=== PATIENT | female | born 1985 | race American Indian/Alaskan Native ===

== ENCOUNTER 2016-10-24 01:32 | Emergency (ER) | payer SELFPAY ==
[2016-10-24 01:32] VITALS: BMI 40.6
--- NOTE | 2016-10-24 01:46 | C.PDOC ---
History Of Present Illness Patient presents to the emergency room looking for a place to stay. Patient is well known to the ED and has had multiple prior visits for the same reason. Patient denies any physical complaints. Time Seen by Provider: 10/24/16 01:45 History Per: Patient History/Exam Limitations: no limitations Onset/Duration Of Symptoms: Hrs Current Symptoms Are (Timing): Still Present Recent travel outside of the [place]: No Past Medical History Reviewed: Historical Data, Nursing Documentation, Vital Signs Vital Signs: Last Vital Signs Temp 98.8 F 10/24/16 01:40 Pulse 87 10/24/16 01:40 Resp 18 10/24/16 01:40 BP 159/82 H 10/24/16 01:40 Pulse Ox 100 10/24/16 01:40 - Medical History PMH: Anxiety, Asthma, Back Problems, Bipolar Disorder, Depression, HTN, Schizophrenia, Sleep Apnea Denies: Diabetes, Hepatitis, HIV, Chronic Kidney Disease, Seizures, Sexually Transmitted Disease Surgical History: Cholecystectomy, Hernia Repair (Umbilical), (x4) - [facility] Procedures GROUP PSYCHOTHERAPY (03/15/16) INDIVID PSYCHOTHERAP NEC (07/19/14) INDIVIDUAL PSYCHOTHERAPY, SUPPORTIVE (03/15/16) INJECT/INFUSE ELECTROLYT (03/24/15) INJECT/INFUSE NEC (03/24/15) MEDICATION MANAGEMENT (08/04/16) NEBULIZER THERAPY (01/28/15) OTHER GROUP THERAPY (07/19/14) PSYCHIA INTERV/EVAL NEC (03/20/15) PSYCHIAT DRUG THERAP NEC (08/18/14) Family History: States: Unknown Family Hx - Social History Hx Tobacco Use: Yes Hx Alcohol Use: Yes Hx Substance Use: Yes - Immunization History Hx Tetanus Toxoid Vaccination: No Hx Influenza Vaccination: No Hx Pneumococcal Vaccination: No Review Of Systems Constitutional: Negative for: Fever Gastrointestinal: Negative for: Nausea, Vomiting, Diarrhea Physical Exam - Physical Exam Appears: No Acute Distress Skin: Warm, Dry Extremity: Normal ROM, No Tenderness Neurological/Psych: Oriented x3 ED Course And Treatment O2 Sat by Pulse Oximetry: 100 Pulse Ox Interpretation: Normal Reevaluation Time: 05:25 Reassessment Condition: Improved Disposition Counseled Patient/Family Regarding: Studies Performed, Diagnosis, Need For Followup - Disposition Referrals: [facility] at [facility] [Outside] Disposition: HOME/ ROUTINE Disposition Time: 01:46 Condition: FAIR Instructions: Anxiety (ED) - Clinical Impression Clinical Impression: Medical assessment - Scribe Statement The provider has reviewed the documentation as recorded by the Scribe Quoc Mccracken All medical record entries made by the Vargasibe were at my direction and personally dictated by me. I have reviewed the chart and agree that the record accurately reflects my personal performance of the history, physical exam, medical decision making, and the department course for this patient. I have also personally directed, reviewed, and agree with the discharge instructions and disposition.
[2016-10-24 06:10] VITALS: BP 145/72; PULSE 81; RESP 20; TEMP 97.8; O2SAT 99
== END 2016-10-24 06:10 | disposition home or self-care (01) ==
LOC: C.ER 01:32
DX: Z00.00 Encounter for general adult medical examination without abnormal findings (principal)

== ENCOUNTER 2016-12-04 04:50 | Emergency (ER) | payer MEDICAID, OTHER ==
[2016-12-04 04:50] VITALS: BMI 47.0
[2016-12-04 05:12] VITALS: BP 119/57; PULSE 79; TEMP 98.6; O2SAT 98
--- NOTE | 2016-12-04 05:16 | C.PDOC ---
History Of Present Illness 31 Y/O FEMALE STATES SHE HAS BEEN UNABLE TO WALK FOR 2 MONTHS. DENIES INJURY OR TRAUMA. PT AMBULATORY TO ED. NO OTHER PHYSICAL COMPLAINTS. History Per: Patient History/Exam Limitations: no limitations Onset/Duration Of Symptoms: Days Recent travel outside of the [place]: No Past Medical History Reviewed: Historical Data, Nursing Documentation, Vital Signs Vital Signs: Last Vital Signs Temp 98.6 F 12/04/16 05:05 Pulse 79 12/04/16 05:05 Resp 18 12/04/16 05:05 BP 119/57 L 12/04/16 05:05 Pulse Ox 98 12/04/16 05:16 - Medical History PMH: Anxiety, Asthma, Back Problems, Bipolar Disorder, Depression, HTN, Schizophrenia, Sleep Apnea Surgical History: Cholecystectomy, Hernia Repair (Umbilical), (x4) - [facility] Procedures GROUP PSYCHOTHERAPY (03/15/16) INDIVID PSYCHOTHERAP NEC (07/19/14) INDIVIDUAL PSYCHOTHERAPY, SUPPORTIVE (03/15/16) INJECT/INFUSE ELECTROLYT (03/24/15) INJECT/INFUSE NEC (03/24/15) MEDICATION MANAGEMENT (08/04/16) NEBULIZER THERAPY (01/28/15) OTHER GROUP THERAPY (07/19/14) PSYCHIA INTERV/EVAL NEC (03/20/15) PSYCHIAT DRUG THERAP NEC (08/18/14) Family History: States: Unknown Family Hx - Social History Hx Tobacco Use: Yes Hx Alcohol Use: Yes Hx Substance Use: Yes - Immunization History Hx Tetanus Toxoid Vaccination: No Hx Influenza Vaccination: Yes Hx Pneumococcal Vaccination: Yes Review Of Systems Except As Marked, All Systems Reviewed And Found Negative. Constitutional: Negative for: Fever Cardiovascular: Negative for: Chest Pain Respiratory: Negative for: Shortness of Breath, Wheezing Gastrointestinal: Negative for: Nausea, Vomiting, Abdominal Pain Skin: Negative for: Rash Neurological: Negative for: Headache Physical Exam - Physical Exam Appears: Non-toxic, No Acute Distress Skin: Warm, Dry Head: Atraumatic, Normacephalic Chest: Symmetrical Cardiovascular: Rhythm Regular Respiratory: Normal Breath Sounds, No Rales, No Rhonchi, No Wheezing Gastrointestinal/Abdominal: Soft, No Tenderness Back: Normal Inspection Extremity: Normal ROM, Capillary Refill (< 2 SEC) Neurological/Psych: Oriented x3 ED Course And Treatment O2 Sat by Pulse Oximetry: 98 Pulse Ox Interpretation: Normal Progress - Data Reviewed Data Reviewed: Old records Disposition Counseled Patient/Family Regarding: Diagnosis, Need For Followup - Disposition Referrals: YOUR,PMD [Other] Disposition: HOME/ ROUTINE Disposition Time: 05:15 Condition: GOOD Instructions: Chronic Pain (ED) - Clinical Impression Clinical Impression: Chronic pain, Malingering - Scribe Statement The provider has reviewed the documentation as recorded by the Aleksandra Castillo Provider Scribe Attestation: All medical record entries made by the Aleksandra were at my direction and personally dictated by me. I have reviewed the chart and agree that the record accurately reflects my personal performance of the history, physical exam, medical decision making, and the department course for this patient. I have also personally directed, reviewed, and agree with the discharge instructions and disposition.
[2016-12-04 06:48] VITALS: RESP 20
== END 2016-12-04 06:47 | disposition home or self-care (01) ==
LOC: C.ER 04:50
DX: G89.29 Other chronic pain (principal); Z76.5 Malingerer [conscious simulation]

== ENCOUNTER 2016-12-20 06:30 | Emergency (ER) | payer MEDICAID, OTHER ==
[2016-12-20 06:31] VITALS: BMI 49.1
[2016-12-20 06:44] VITALS: BP 142/62; TEMP 98.4
--- NOTE | 2016-12-20 07:05 | C.PDOC ---
History Of Present Illness 31 yo female, well known to er, presents with right shoulder pain. pt reports she has right shoulder pain. pt was eval at another institution and d/c. pt denies any trauma. upon initial assessment, pt sleeping in nad. no fevers, cp, n /v/d, sob, or other complaints. Time Seen by Provider: 12/20/16 06:59 Chief Complaint (Nursing): Upper Extremity Problem/Injury Past Medical History Reviewed: Historical Data, Nursing Documentation, Vital Signs Vital Signs: Last Vital Signs Temp 98.4 F 12/20/16 06:43 Pulse 68 12/20/16 07:25 Resp 16 12/20/16 07:25 BP 142/62 12/20/16 06:43 Pulse Ox 99 12/20/16 07:25 - Medical History PMH: Anxiety, Asthma, Back Problems, Bipolar Disorder, Depression, HTN, Schizophrenia, Sleep Apnea Denies: Diabetes, Hepatitis, HIV, Chronic Kidney Disease, Seizures, Sexually Transmitted Disease Surgical History: Cholecystectomy, Hernia Repair (Umbilical[facility] Procedures GROUP PSYCHOTHERAPY (03/15/16) INDIVID PSYCHOTHERAP NEC (07/19/14) INDIVIDUAL PSYCHOTHERAPY, SUPPORTIVE (03/15/16) INJECT/INFUSE ELECTROLYT (03/24/15) INJECT/INFUSE NEC (03/24/15) MEDICATION MANAGEMENT (08/04/16) NEBULIZER THERAPY (01/28/15) OTHER GROUP THERAPY (07/19/14) PSYCHIA INTERV/EVAL NEC (03/20/15) PSYCHIAT DRUG THERAP NEC (08/18/14) Family History: States: Unknown Family Hx - Social History Hx Tobacco Use: Yes Hx Alcohol Use: Yes Hx Substance Use: Yes - Immunization History Hx Tetanus Toxoid Vaccination: No Hx Influenza Vaccination: Yes Hx Pneumococcal Vaccination: Yes Review Of Systems Except As Marked, All Systems Reviewed And Found Negative. Musculoskeletal: Positive for: Shoulder Pain Physical Exam - Physical Exam Appears: Well, No Acute Distress, Other (sleeping in nad) Skin: Normal Color, Warm, Dry Eye(s): bilateral: Normal Inspection, PERRL, EOMI Nose: Normal Throat: Normal Neck: Normal Cardiovascular: Rhythm Regular Respiratory: Normal Breath Sounds Gastrointestinal/Abdominal: Normal Exam Back: Normal Inspection Extremity: Normal ROM, Tenderness ((+)mild right shoulder), No Deformity, No Swelling ED Course And Treatment O2 Sat by Pulse Oximetry: 100 Disposition - Disposition Referrals: [facility] [Outside] [facility] at [facility] [Outside] [facility] [place] [Outside] Disposition: HOME/ ROUTINE Disposition Time: 08:00 Condition: STABLE Additional Instructions: please see specialist/clinic. return to er with worsening symptoms or concerns. Prescriptions: Naproxen [Naprosyn] 500 mg PO BID PRN #14 tablet PRN Reason: Pain, Mild (1-3) Instructions: Shoulder Sprain (ED) - Clinical Impression Clinical Impression: Shoulder pain
[2016-12-20 07:40] VITALS: PULSE 68; RESP 16
--- NOTE | 2016-12-20 08:59 | RAD ---
PROCEDURE: Radiographs of the Right Shoulder HISTORY: shoulder pain COMPARISON: No prior. FINDINGS: BONES: Normal. No fracture. JOINTS: Normal. Glenohumeral and acromioclavicular joints preserved. No osteoarthritis. SOFT TISSUES: Normal. OTHER FINDINGS: None. IMPRESSION: No evidence of acute fracture or dislocation.
[2016-12-20 09:06] VITALS: O2SAT 100
== END 2016-12-20 07:30 | disposition home or self-care (01) ==
LOC: C.ER 06:30
DX: M25.511 Pain in right shoulder (principal)

== ENCOUNTER 2017-01-13 03:35 | Emergency (ER) | payer MEDICAID, OTHER ==
[2017-01-13 03:36] VITALS: BMI 42.0
[2017-01-13 03:56] VITALS: PULSE 65; RESP 16; TEMP 97.8; O2SAT 98
[2017-01-13 04:39] VITALS: BP 137/78
--- NOTE | 2017-01-13 04:41 | C.PDOC ---
History Of Present Illness Patient is a 31 year old female who presents to the ER with a complaint of "not feeling well". Patient states she just wants to sleep. Denies any physical complaints at this time. Time Seen by Provider: 01/13/17 03:44 Chief Complaint (Nursing): Medical Clearance History Per: Patient History/Exam Limitations: no limitations Onset/Duration Of Symptoms: Hrs Current Symptoms Are (Timing): Still Present Recent travel outside of the [place]: No Past Medical History Reviewed: Historical Data, Nursing Documentation, Vital Signs Vital Signs: Last Vital Signs Temp 97.8 F 01/13/17 03:47 Pulse 65 01/13/17 03:47 Resp 16 01/13/17 03:47 BP 137/78 01/13/17 04:38 Pulse Ox 98 01/13/17 04:48 - Medical History PMH: Anxiety, Asthma, Back Problems, Bipolar Disorder, Depression, HTN, Schizophrenia, Sleep Apnea Surgical History: Cholecystectomy, Hernia Repair (Umbilical), (x4) - [facility] Procedures GROUP PSYCHOTHERAPY (03/15/16) INDIVID PSYCHOTHERAP NEC (07/19/14) INDIVIDUAL PSYCHOTHERAPY, SUPPORTIVE (03/15/16) INJECT/INFUSE ELECTROLYT (03/24/15) INJECT/INFUSE NEC (03/24/15) MEDICATION MANAGEMENT (08/04/16) NEBULIZER THERAPY (01/28/15) OTHER GROUP THERAPY (07/19/14) PSYCHIA INTERV/EVAL NEC (03/20/15) PSYCHIAT DRUG THERAP NEC (08/18/14) Family History: States: Unknown Family Hx - Social History Hx Tobacco Use: Yes Hx Alcohol Use: Yes Hx Substance Use: Yes - Immunization History Hx Tetanus Toxoid Vaccination: No Hx Influenza Vaccination: Yes Hx Pneumococcal Vaccination: Yes Review Of Systems Constitutional: Positive for: Other ("Not feeling well"). Negative for: Fever, Chills Gastrointestinal: Negative for: Nausea, Vomiting, Diarrhea Physical Exam - Physical Exam Appears: Well, Non-toxic, Other (Obese) Skin: Normal Color, Warm, Dry Head: Atraumatic, Normacephalic Eye(s): bilateral: Normal Inspection, PERRL Oral Mucosa: Moist Neck: Normal, Supple Cardiovascular: Rhythm Regular Respiratory: Normal Breath Sounds, Other (No respiratory distress. Speaking in complete sentences.) Gastrointestinal/Abdominal: Normal Exam, Soft, Other (obese) Neurological/Psych: Oriented x3, Normal Speech, Normal Cognition Gait: Steady ED Course And Treatment O2 Sat by Pulse Oximetry: 98 (Room air) Pulse Ox Interpretation: Normal Disposition - Disposition Disposition: HOME/ ROUTINE Disposition Time: 04:40 Condition: STABLE - Clinical Impression Clinical Impression: Medical assessment, Malingering - Scribe Statement The provider has reviewed the documentation as recorded by the Scribyemi Cruz All medical record entries made by the Vargasibyemi were at my direction and personally dictated by me. I have reviewed the chart and agree that the record accurately reflects my personal performance of the history, physical exam, medical decision making, and the department course for this patient. I have also personally directed, reviewed, and agree with the discharge instructions and disposition.
== END 2017-01-13 04:46 | disposition home or self-care (01) ==
LOC: C.ER 03:35
DX: Z00.00 Encounter for general adult medical examination without abnormal findings (principal); Z76.5 Malingerer [conscious simulation]

== ENCOUNTER 2017-02-06 04:46 | Emergency (ER) | payer MEDICAID, OTHER ==
[2017-02-06 04:46] VITALS: BMI 42.0
--- NOTE | 2017-02-06 05:22 | C.PDOC ---
History Of Present Illness 32 y/o F p/w chest pain. Patient came to ER at 430AM for chest pain. On my arrival to bedside, patient sleeping soundly, arousable, states she just wants to sleep. Time Seen by Provider: 02/06/17 04:58 Chief Complaint (Nursing): Chest Pain Past Medical History Vital Signs: Last Vital Signs Temp 97.5 F L 02/06/17 04:54 Pulse 61 02/06/17 05:04 Resp 22 02/06/17 05:04 BP 130/50 L 02/06/17 05:04 Pulse Ox 99 02/06/17 05:04 - Medical History PMH: Anxiety, Asthma, Back Problems, Bipolar Disorder, Depression, HTN, Schizophrenia, Sleep Apnea Denies: Diabetes, Hepatitis, HIV, Chronic Kidney Disease, Seizures, Sexually Transmitted Disease Surgical History: Cholecystectomy, Hernia Repair (Umbilical), (x4) - [facility] Procedures GROUP PSYCHOTHERAPY (03/15/16) INDIVID PSYCHOTHERAP NEC (07/19/14) INDIVIDUAL PSYCHOTHERAPY, SUPPORTIVE (03/15/16) INJECT/INFUSE ELECTROLYT (03/24/15) INJECT/INFUSE NEC (03/24/15) MEDICATION MANAGEMENT (08/04/16) NEBULIZER THERAPY (01/28/15) OTHER GROUP THERAPY (07/19/14) PSYCHIA INTERV/EVAL NEC (03/20/15) PSYCHIAT DRUG THERAP NEC (08/18/14) Family History: States: Unknown Family Hx - Social History Hx Tobacco Use: Yes Hx Alcohol Use: Yes Hx Substance Use: Yes - Immunization History Hx Tetanus Toxoid Vaccination: No Hx Influenza Vaccination: Yes Hx Pneumococcal Vaccination: Yes Review Of Systems Except As Marked, All Systems Reviewed And Found Negative. Constitutional: Negative for: Fever Respiratory: Negative for: Shortness of Breath Physical Exam - Physical Exam Appears: No Acute Distress Skin: Normal Color Head: Normacephalic Eye(s): bilateral: PERRL Oral Mucosa: Moist Neck: Supple Chest: No Deformity Cardiovascular: Rhythm Regular Respiratory: Normal Breath Sounds Gastrointestinal/Abdominal: Soft, No Tenderness Back: No CVA Tenderness Extremity: No Tenderness, No Swelling Pulses: Left Radial: Normal, Right Radial: Normal Neurological/Psych: Other (No focal deficit) ED Course And Treatment O2 Sat by Pulse Oximetry: 99 Medical Decision Making Medical Decision Making: Patient with multiple visits to ER. Patient currently sleeping. Will observe, and discharge in AM. Disposition - Disposition Disposition: HOME/ ROUTINE Disposition Time: 05:21 Condition: STABLE Instructions: Chest Pain (ED) - Clinical Impression Clinical Impression: Malingering
[2017-02-06 05:49] VITALS: BP 134/59; PULSE 65; RESP 23; TEMP 98.2; O2SAT 98
--- NOTE | 2017-02-27 14:19 | CARD ---
APPROVED REPORT EKG Measurement Heart [id number] <Conclusion> Normal sinus rhythm with sinus arrhythmia Nonspecific T wave abnormality Abnormal ECG
== END 2017-02-06 06:14 | disposition home or self-care (01) ==
LOC: C.ER 04:46
DX: Z76.5 Malingerer [conscious simulation] (principal)

== ENCOUNTER 2017-02-13 03:10 | Emergency (ER) | payer MEDICAID, OTHER ==
[2017-02-13 03:11] VITALS: BMI 42.0
[2017-02-13 03:24] VITALS: BP 141/89; PULSE 80; RESP 14; TEMP 97; O2SAT 96
--- NOTE | 2017-02-13 03:31 | C.PDOC ---
History Of Present Illness 32 year old female brought to the ER via EMS requesting a psychiatric evaluation ; patient admits to smoking marijuana today. Patient has a long Hx of malingering with over 200 visits to the ER for vague complaints. Patient is verbally abusive to staff; she screamed in the ER "fuck you, call the hop weigher, I don't give a fuck!" Denies SI or HI. Time Seen by Provider: 02/13/17 03:30 Chief Complaint (Nursing): Psychiatric Evaluation History Per: Patient History/Exam Limitations: no limitations Onset/Duration Of Symptoms: Hrs Current Symptoms Are (Timing): Still Present Recent travel outside of the [place]: No Past Medical History Reviewed: Historical Data, Nursing Documentation, Vital Signs Vital Signs: Last Vital Signs Temp 97 F L 02/13/17 03:22 Pulse 80 02/13/17 03:22 Resp 14 02/13/17 03:22 BP 141/89 02/13/17 03:22 Pulse Ox 96 02/13/17 03:36 - Medical History PMH: Anxiety, Asthma, Back Problems, Bipolar Disorder, Depression, HTN, Schizophrenia, Sleep Apnea Surgical History: Cholecystectomy, Hernia Repair (Umbilical), (x4) - [facility] Procedures GROUP PSYCHOTHERAPY (03/15/16) INDIVID PSYCHOTHERAP NEC (07/19/14) INDIVIDUAL PSYCHOTHERAPY, SUPPORTIVE (03/15/16) INJECT/INFUSE ELECTROLYT (03/24/15) INJECT/INFUSE NEC (03/24/15) MEDICATION MANAGEMENT (08/04/16) NEBULIZER THERAPY (01/28/15) OTHER GROUP THERAPY (07/19/14) PSYCHIA INTERV/EVAL NEC (03/20/15) PSYCHIAT DRUG THERAP NEC (08/18/14) Family History: States: Unknown Family Hx - Social History Hx Tobacco Use: Yes Hx Alcohol Use: Yes Hx Substance Use: Yes - Immunization History Hx Tetanus Toxoid Vaccination: No Hx Influenza Vaccination: Yes Hx Pneumococcal Vaccination: Yes Review Of Systems Constitutional: Negative for: Fever, Chills Gastrointestinal: Negative for: Nausea, Vomiting Psych: Negative for: Suicidal ideation Physical Exam - Physical Exam Appears: Non-toxic, No Acute Distress, Other (Short, Obese, Verbally abusive) Skin: Normal Color, Warm, Dry Head: Atraumatic, Normacephalic Gait: Steady ED Course And Treatment O2 Sat by Pulse Oximetry: 96 (Room air) Pulse Ox Interpretation: Normal Medical Decision Making Medical Decision Making: malingering, many prior evals here and other local hospitals for same. no acute issues Disposition Doctor Will See Patient In The: Office Counseled Patient/Family Regarding: Studies Performed, Diagnosis - Disposition Referrals: [facility] [Outside] [facility] [Outside] [facility] [Outside] Disposition: HOME/ ROUTINE Disposition Time: 03:31 Condition: GOOD Additional Instructions: seek outpatient evaluation for your chronic psychiatric issues. Instructions: Anxiety (ED) - Clinical Impression Clinical Impression: Malingering, Homelessness, Cannabis abuse - Scribe Statement The provider has reviewed the documentation as recorded by the Scribyemi Cruz All medical record entries made by the Vargasibe were at my direction and personally dictated by me. I have reviewed the chart and agree that the record accurately reflects my personal performance of the history, physical exam, medical decision making, and the department course for this patient. I have also personally directed, reviewed, and agree with the discharge instructions and disposition.
== END 2017-02-13 04:49 | disposition home or self-care (01) ==
LOC: C.ER 03:10
DX: F12.10 Cannabis abuse, uncomplicated (principal); Z76.5 Malingerer [conscious simulation]; Z59.0 Homelessness

== ENCOUNTER 2017-04-25 04:04 | Emergency (ER) | payer MEDICAID, OTHER ==
[2017-04-25 04:06] VITALS: BMI 42.0
[2017-04-25 04:21] VITALS: O2SAT 99
--- NOTE | 2017-04-25 04:29 | C.PDOC ---
History Of Present Illness 32yo female, brought to the ED by EMS for evaluation after finding the patient publicly intoxicated. The patient admits to drinking and smoking marijuana. She offers no medical complaints. Time Seen by Provider: 04/25/17 04:28 Chief Complaint (Nursing): Medical Clearance History Per: EMS History/Exam Limitations: intoxication Onset/Duration Of Symptoms: Hrs Current Symptoms Are (Timing): Still Present Reports Recently: Seen In ED Recent travel outside of the [place]: No Additional History Per: Patient Past Medical History Reviewed: Historical Data, Nursing Documentation, Vital Signs Vital Signs: Last Vital Signs Temp 98.8 F 04/25/17 04:09 Pulse 83 04/25/17 04:09 Resp 20 04/25/17 04:09 BP 138/81 04/25/17 04:09 Pulse Ox 99 04/25/17 04:57 - Medical History PMH: Anxiety, Asthma, Back Problems, Bipolar Disorder, Depression, HTN, Schizophrenia, Sleep Apnea Denies: Diabetes, Hepatitis, HIV, Chronic Kidney Disease, Seizures, Sexually Transmitted Disease Surgical History: Cholecystectomy, Hernia Repair (Umbilical), (x4) - [facility] Procedures GROUP PSYCHOTHERAPY (03/15/16) INDIVID PSYCHOTHERAP NEC (07/19/14) INDIVIDUAL PSYCHOTHERAPY, SUPPORTIVE (03/15/16) INJECT/INFUSE ELECTROLYT (03/24/15) INJECT/INFUSE NEC (03/24/15) MEDICATION MANAGEMENT (08/04/16) NEBULIZER THERAPY (01/28/15) OTHER GROUP THERAPY (07/19/14) PSYCHIA INTERV/EVAL NEC (03/20/15) PSYCHIAT DRUG THERAP NEC (08/18/14) Family History: States: Unknown Family Hx - Social History Hx Tobacco Use: Yes Hx Alcohol Use: Yes Hx Substance Use: Yes - Immunization History Hx Tetanus Toxoid Vaccination: No Hx Influenza Vaccination: Yes Hx Pneumococcal Vaccination: Yes Review Of Systems Constitutional: Negative for: Fever Cardiovascular: Negative for: Chest Pain Respiratory: Negative for: Shortness of Breath Gastrointestinal: Negative for: Abdominal Pain Psych: Positive for: Other (+EtOH and marijuana use). Negative for: Suicidal ideation Physical Exam - Physical Exam Appears: No Acute Distress, Other (visibly intoxicated) Skin: Warm Head: Normacephalic Eye(s): bilateral: Normal Inspection Oral Mucosa: Moist, Other (alcohol on breath) Neck: Supple Chest: Symmetrical Cardiovascular: Rhythm Regular Respiratory: No Rales, No Rhonchi, No Wheezing Gastrointestinal/Abdominal: Bowel Sounds, Soft, No Tenderness Back: No CVA Tenderness Extremity: Normal ROM, No Deformity, No Swelling Neurological/Psych: Oriented x3, Normal Speech, Normal Cognition Gait: Unsteady ED Course And Treatment O2 Sat by Pulse Oximetry: 99 (RA) Pulse Ox Interpretation: Normal Reevaluation Time: 06:07 Reassessment Condition: Improved Disposition Counseled Patient/Family Regarding: Studies Performed, Diagnosis, Need For Followup - Disposition Referrals: [facility] [Outside] Disposition: HOME/ ROUTINE Disposition Time: 04:29 Condition: FAIR Instructions: Alcohol Intoxication (DC) Forms: [facility] or [facility] (Romans[place]) - Clinical Impression Clinical Impression: Substance abuse, Alcohol intoxication - Scribe Statement The provider has reviewed the documentation as recorded by the Aleksandra Choudhary Provider Attestation: All medical record entries made by the Vargasibyemi were at my direction and personally dictated by me. I have reviewed the chart and agree that the record accurately reflects my personal performance of the history, physical exam, medical decision making, and the department course for this patient. I have also personally directed, reviewed, and agree with the discharge instructions and disposition.
[2017-04-25 06:19] VITALS: BP 143/76; PULSE 79; RESP 98; TEMP 98.4
== END 2017-04-25 06:30 | disposition home or self-care (01) ==
LOC: C.ER 04:04
DX: F10.129 Alcohol abuse with intoxication, unspecified (principal); F19.10 Other psychoactive substance abuse, uncomplicated

== ENCOUNTER 2017-08-25 01:50 | Emergency (ER) | payer MEDICAID, OTHER ==
[2017-08-25 01:51] VITALS: BMI 40.6
[2017-08-25 02:12] VITALS: TEMP 98.7
--- NOTE | 2017-08-25 02:39 | C.PDOC ---
History Of Present Illness 32 year old female presents to the ER with a complaint of suicidal ideation and depression after her friend in April. Denies homicidal ideation or physical complaints. Time Seen by Provider: 08/25/17 02:39 Chief Complaint (Nursing): Medical Clearance History Per: Patient History/Exam Limitations: no limitations Onset/Duration Of Symptoms: Days Current Symptoms Are (Timing): Still Present Severity: None Pain Scale Rating Of: 0 Recent travel outside of the [place]: No Past Medical History Reviewed: Historical Data, Nursing Documentation, Vital Signs Vital Signs: Last Vital Signs Temp 98.7 F 08/25/17 02:08 Pulse 77 08/25/17 02:08 Resp 20 08/25/17 02:08 BP 160/70 H 08/25/17 02:08 Pulse Ox 100 08/25/17 03:46 - Medical History PMH: Anxiety, Asthma, Back Problems, Bipolar Disorder, Depression, HTN, Schizophrenia, Sleep Apnea Surgical History: Cholecystectomy, Hernia Repair (Umbilical), (x4) - [facility] Procedures GROUP PSYCHOTHERAPY (03/15/16) INDIVID PSYCHOTHERAP NEC (07/19/14) INDIVIDUAL PSYCHOTHERAPY, SUPPORTIVE (03/15/16) INJECT/INFUSE ELECTROLYT (03/24/15) INJECT/INFUSE NEC (03/24/15) MEDICATION MANAGEMENT (08/04/16) NEBULIZER THERAPY (01/28/15) OTHER GROUP THERAPY (07/19/14) PSYCHIA INTERV/EVAL NEC (03/20/15) PSYCHIAT DRUG THERAP NEC (08/18/14) Family History: States: Unknown Family Hx - Social History Hx Tobacco Use: Yes Hx Alcohol Use: Yes Hx Substance Use: Yes - Immunization History Hx Tetanus Toxoid Vaccination: No Hx Influenza Vaccination: No Hx Pneumococcal Vaccination: No Review Of Systems Constitutional: Negative for: Fever, Chills Gastrointestinal: Negative for: Nausea, Vomiting, Diarrhea Psych: Positive for: Depression, Suicidal ideation Physical Exam - Physical Exam Appears: Non-toxic Skin: Warm, Dry Head: Normacephalic Oral Mucosa: Moist Chest: Symmetrical, No Tenderness Cardiovascular: Rhythm Regular Respiratory: No Rales, No Rhonchi, No Wheezing Gastrointestinal/Abdominal: Soft, No Tenderness Neurological/Psych: Oriented x3 ED Course And Treatment - Laboratory Results Result Diagrams: 08/25/17 04:09 08/25/17 04:09 O2 Sat by Pulse Oximetry: 100 (Room air) Pulse Ox Interpretation: Normal Progress Note: Blood work and urinalysis ordered. Crisis notified. Disposition Counseled Patient/Family Regarding: Studies Performed, Diagnosis - Disposition Disposition Time: 02:39 Condition: FAIR Forms: [facility] (Georgian) - Clinical Impression Clinical Impression: Depression - PA / TRANSPORTATION JOB TITLES / Resident Statement MD/DO has reviewed & agrees with the documentation as recorded. - Scribe Statement The provider has reviewed the documentation as recorded by the Scribe Ko Cruz All medical record entries made by the Scribe were at my direction and personally dictated by me. I have reviewed the chart and agree that the record accurately reflects my personal performance of the history, physical exam, medical decision making, and the department course for this patient. I have also personally directed, reviewed, and agree with the discharge instructions and disposition. Physician Patient Turnover Patient Signed Over To: Erlinda Norman Handoff Comments: pending crisis eval
[2017-08-25 04:17] LABS: HEMOGLOBIN 9.4 g/dL (11.0-16.0); MEAN CELL VOLUME 73.2 fL (81.0-99.0); MEAN PLATELET VOLUME 8.3 fL (7.2-11.7); WHITE BLOOD COUNT 5.9 K/uL (4.8-10.8)
[2017-08-25 04:21] LABS: ALB/GLOB RATIO 1.1 (1.0-2.1); ALBUMIN 3.6 g/dL (3.5-5.0); ALT/SGPT 20 U/L (9-52); AST/SGOT 36 U/L (14-36); BLOOD UREA NITROGEN 14 mg/dL (7-17); GFR AFRICAN-AMERICAN > 60; GFR NON-AFRICAN AMERICAN > 60
[2017-08-25 04:23] LABS: BASO % 0.3 % (0.0-2.0); EOS # 0.1 K/uL (0.0-0.7); EOS % 1.7 % (0.0-4.0); LYMPH % 51.1 % (20.0-40.0); MEAN CORPUSCULAR HEMOGLOBIN 22.9 pg (27.0-31.0); MEAN CORPUSCULAR HGB CONC 31.2 g/dL (33.0-37.0); MONO # 0.3 K/uL (0.0-0.8); MONO % 4.8 % (0.0-10.0); NEUT # 2.5 K/uL (1.8-7.0); NEUT % 42.1 % (50.0-75.0); RBC 4.11 Mil/uL (3.80-5.20); RED CELL DISTRIBUTION WIDTH 19.3 % (11.5-14.5)
[2017-08-25 06:06] LABS: HCG,QUALITATIVE URINE NEGATIVE (NEGATIVE)
[2017-08-25 06:07] LABS: SQUAMOUS EPITHIAL 4 /hpf (0-5); URINE BILIRUBIN NEGATIVE (NEGATIVE); URINE BLOOD NEGATIVE (NEGATIVE); URINE CLARITY Clear (Clear); URINE COLOR Yellow (YELLOW); URINE GLUCOSE (UA) NORMAL (Normal); URINE LEUKOCYTE ESTERASE NEG Leu/uL (Negative); URINE NITRATE NEGATIVE (NEGATIVE); URINE PROTEIN NEGATIVE (NEGATIVE); URINE UROBILINOGEN NORMAL mg/dL (0.2-1.0)
[2017-08-25 06:40] LABS: BARBITURATES, UR NEGATIVE (NEGATIVE); BENZODIAZEPINES, UR NEGATIVE (NEGATIVE); OPIATES, UR NEGATIVE (NEGATIVE); PHENCYCLIDINE, UR NEGATIVE (NEGATIVE)
[2017-08-25] MEDS ORDERED: Magnesium Citrate Oral SOL (300 ml) PO ONE (10:36)
[2017-08-25 10:50] VITALS: BP 154/81; PULSE 61; RESP 18; O2SAT 99
== END 2017-08-25 11:09 | disposition home or self-care (01) ==
LOC: C.ER 01:50 → UNDOADMIN 10:34 → C.9E 10:34
DX: F32.9 Major depressive disorder, single episode, unspecified (principal); F17.210 Nicotine dependence, cigarettes, uncomplicated

== ENCOUNTER 2017-10-02 04:54 | Emergency (ER) | payer MEDICAID ==
[2017-10-02 04:54] VITALS: BMI 40.6
[2017-10-02] MEDS ORDERED: Sodium Chloride 0.9% 500 ML IV ONE ×2 (05:45→05:55)
--- NOTE | 2017-10-02 05:58 | C.PDOC ---
History Of Present Illness 32 year old female, whose PMHx includes sleep apnea, obesity, malingering, and alcohol intoxication, presents to the ED for evaluation of lightheadedness, dizziness, and two episodes of blood-tingled vomiting which began today. Patient also reports abdominal pain when she coughs. Contrary to triage, patient adamantly denies that she seen at [facility] prior to this ED visit and states she was at home prior to coming here. Upon further questioning, patient keeps changing her chief complaint and reason for ED visit. This patient is familiar to this ED staff and has had many prior visits requesting to sleep in the ED for the night. She denies fever, chills, extremity numbness/weakness. Time Seen by Provider: 10/02/17 05:11 Chief Complaint (Nursing): Medical Clearance History Per: Patient History/Exam Limitations: no limitations Onset/Duration Of Symptoms: Hrs Current Symptoms Are (Timing): Still Present Additional History Per: Patient Past Medical History Reviewed: Historical Data, Nursing Documentation, Vital Signs Vital Signs: Last Vital Signs Temp 98 F 10/02/17 05:03 Pulse 76 10/02/17 05:03 Resp 18 10/02/17 05:03 BP 160/89 H 10/02/17 05:03 Pulse Ox 99 10/02/17 06:29 - Medical History PMH: Anxiety, Asthma, Back Problems, Bipolar Disorder, Depression, HTN, Schizophrenia, Sleep Apnea Denies: Diabetes, Hepatitis, HIV, Chronic Kidney Disease, Seizures, Sexually Transmitted Disease Surgical History: Cholecystectomy, Hernia Repair (Umbilical), (x4) - [facility] Procedures GROUP PSYCHOTHERAPY (03/15/16) INDIVID PSYCHOTHERAP NEC (07/19/14) INDIVIDUAL PSYCHOTHERAPY, SUPPORTIVE (03/15/16) INJECT/INFUSE ELECTROLYT (03/24/15) INJECT/INFUSE NEC (03/24/15) MEDICATION MANAGEMENT (08/04/16) NEBULIZER THERAPY (01/28/15) OTHER GROUP THERAPY (07/19/14) PSYCHIA INTERV/EVAL NEC (03/20/15) PSYCHIAT DRUG THERAP NEC (08/18/14) Family History: States: Unknown Family Hx - Social History Hx Tobacco Use: Yes Hx Alcohol Use: Yes Hx Substance Use: Yes - Immunization History Hx Tetanus Toxoid Vaccination: No Hx Influenza Vaccination: No Hx Pneumococcal Vaccination: No Review Of Systems Constitutional: Negative for: Fever, Chills Gastrointestinal: Positive for: Vomiting, Abdominal Pain, Hematemesis Neurological: Positive for: Dizziness, Other (lightheadedness). Negative for: Weakness, Numbness Physical Exam - Physical Exam Appears: Non-toxic, No Acute Distress, Other (lying comfortably on stretcher in a supine position, s;eeping,. easiluy aroused. obese ) Skin: Normal Color, Warm, Dry Head: Atraumatic, Normacephalic Eye(s): bilateral: Normal Inspection Oral Mucosa: Moist Neck: Supple Chest: Symmetrical, No Deformity, No Tenderness Cardiovascular: Rhythm Regular, No Murmur Respiratory: No Rales, No Rhonchi, Wheezing (expiratory ) Gastrointestinal/Abdominal: Soft, No Tenderness, No Guarding, No Rebound, Other (vertical scar ) Extremity: Normal ROM, Capillary Refill (less than 2 seconds ) Neurological/Psych: Normal Speech, Normal Cognition ED Course And Treatment - Laboratory Results Result Diagrams: 10/02/17 06:18 10/02/17 06:18 O2 Sat by Pulse Oximetry: 99 (on RA) Pulse Ox Interpretation: Normal Medical Decision Making Medical Decision Making: Progress: Bloodwork, urinalysis, CXR ordered and reviewed. Pepcid IVP, Zofran IVP and IV fluids administered. 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 - Scribe Statement The provider has reviewed the documentation as recorded by the Scribe (Licha Mckeon) All medical record entries made by the Scribe were at my direction and personally dictated by me. I have reviewed the chart and agree that the record accurately reflects my personal performance of the history, physical exam, medical decision making, and the department course for this patient. I have also personally directed, reviewed, and agree with the discharge instructions and disposition. Physician Patient Turnover Patient Signed Over To: Gisell Mason Handoff Comments: f/u labs, cxr, hgb/hct. dispo accordingly
[2017-10-02] MEDS ORDERED: Albuterol-Ipratrop 3 mg / 0.5 (3 ml) UD INH STA (06:30)
[2017-10-02 06:34] LABS: BASO # 0.1 K/uL (0.0-0.2); BASO % 0.6 % (0.0-2.0); EOS # 0.2 K/uL (0.0-0.7); EOS % 2.1 % (0.0-4.0); HCG,QUALITATIVE URINE NEGATIVE (NEGATIVE); HEMOGLOBIN 9.1 g/dL (11.0-16.0); LYMPH # 2.6 K/uL (1.0-4.3); MEAN CELL VOLUME 73.1 fL (81.0-99.0); MEAN CORPUSCULAR HEMOGLOBIN 23.8 pg (27.0-31.0); MEAN CORPUSCULAR HGB CONC 32.5 g/dL (33.0-37.0); MEAN PLATELET VOLUME 8.5 fL (7.2-11.7); MONO # 0.5 K/uL (0.0-0.8); MONO % 5.5 % (0.0-10.0); NEUT % 63.8 % (50.0-75.0); RBC 3.83 Mil/uL (3.80-5.20); RED CELL DISTRIBUTION WIDTH 19.1 % (11.5-14.5); WHITE BLOOD COUNT 9.4 K/uL (4.8-10.8)
[2017-10-02 06:45] LABS: ALB/GLOB RATIO 1.1 (1.0-2.1); ALBUMIN 3.9 g/dL (3.5-5.0); ALT/SGPT 22 U/L (9-52); AST/SGOT 25 U/L (14-36); BLOOD UREA NITROGEN 10 mg/dL (7-17); CALCIUM 8.7 mg/dl (8.6-10.4); GFR AFRICAN-AMERICAN > 60; GFR NON-AFRICAN AMERICAN > 60; LIPASE 62 U/L (23-300); SQUAMOUS EPITHIAL 3 /hpf (0-5); URINE BILIRUBIN NEGATIVE (NEGATIVE); URINE BLOOD NEGATIVE (NEGATIVE); URINE CLARITY Clear (Clear); URINE COLOR Straw (YELLOW); URINE GLUCOSE (UA) NORMAL (Normal); URINE LEUKOCYTE ESTERASE NEG Leu/uL (Negative); URINE NITRATE NEGATIVE (NEGATIVE); URINE PROTEIN NEGATIVE (NEGATIVE); URINE UROBILINOGEN NORMAL mg/dL (0.2-1.0)
[2017-10-02 07:42] VITALS: TEMP 98.2
--- NOTE | 2017-10-02 08:48 | RAD ---
HISTORY: cp when coughing. hx asthma COMPARISON: Chest x-ray performed 01/12/15 TECHNIQUE: Chest PA and lateral FINDINGS: Examination limited by habitus. LUNGS: No focal consolidation. Please note that chest x-ray has limited sensitivity for the detection of pulmonary masses. PLEURA: No significant pleural effusion identified. No definite pneumothorax . CARDIOVASCULAR: Heart size appears top normal. OSSEOUS STRUCTURES: No acute osseous abnormality identified. VISUALIZED UPPER ABDOMEN: Unremarkable. OTHER FINDINGS: None. IMPRESSION: No focal consolidation identified.
[2017-10-02 09:07] VITALS: BP 160/72; PULSE 78; RESP 20; O2SAT 100
== END 2017-10-02 09:07 | disposition home or self-care (01) ==
LOC: SUPCPDRO 04:54 → C.ER 04:54
DX: R11.10 Vomiting, unspecified (principal); Z76.5 Malingerer [conscious simulation]
CPT/HCPCS: 71046; 80053; 81001; 83690; 84703; 85025; 96374; 96375; 99284; J2405; J7040

== ENCOUNTER 2017-10-07 03:31 | Emergency (ER) | payer MEDICAID, OTHER ==
[2017-10-07 03:31] VITALS: BMI 40.6
[2017-10-07 03:49] VITALS: BP 134/80; PULSE 70; RESP 20; TEMP 98; O2SAT 98
--- NOTE | 2017-10-07 03:56 | C.PDOC ---
History Of Present Illness 32 year old female presents to the ER stating she is tired and her back hurts. Denies weakness, numbness, trauma, dysuria, hematuria, incontinence, suicidal ideation, or homicidal ideation. Time Seen by Provider: 10/07/17 03:53 Chief Complaint (Nursing): Medical Clearance History Per: Patient History/Exam Limitations: no limitations Onset/Duration Of Symptoms: Hrs Current Symptoms Are (Timing): Still Present Recent travel outside of the [place]: No Past Medical History Reviewed: Historical Data, Nursing Documentation, Vital Signs Vital Signs: Last Vital Signs Temp 98 F 10/07/17 03:46 Pulse 70 10/07/17 03:46 Resp 20 10/07/17 03:46 BP 134/80 10/07/17 03:46 Pulse Ox 98 10/07/17 04:20 - Medical History PMH: Anxiety, Asthma, Back Problems, Bipolar Disorder, Depression, HTN, Schizophrenia, Sleep Apnea Surgical History: Cholecystectomy, Hernia Repair (Umbilical), (x4) - [facility] Procedures GROUP PSYCHOTHERAPY (03/15/16) INDIVID PSYCHOTHERAP NEC (07/19/14) INDIVIDUAL PSYCHOTHERAPY, SUPPORTIVE (03/15/16) INJECT/INFUSE ELECTROLYT (03/24/15) INJECT/INFUSE NEC (03/24/15) MEDICATION MANAGEMENT (08/04/16) NEBULIZER THERAPY (01/28/15) OTHER GROUP THERAPY (07/19/14) PSYCHIA INTERV/EVAL NEC (03/20/15) PSYCHIAT DRUG THERAP NEC (08/18/14) Family History: States: Unknown Family Hx - Social History Hx Tobacco Use: Yes Hx Alcohol Use: Yes Hx Substance Use: Yes - Immunization History Hx Tetanus Toxoid Vaccination: No Hx Influenza Vaccination: No Hx Pneumococcal Vaccination: No Review Of Systems Constitutional: Positive for: Other (Tired). Negative for: Fever, Chills Genitourinary: Negative for: Dysuria, Hematuria Musculoskeletal: Positive for: Back Pain. Negative for: Leg Pain Neurological: Negative for: Weakness, Numbness Psych: Negative for: Suicidal ideation, Other (Homicidal ideation) Physical Exam - Physical Exam Appears: Non-toxic, No Acute Distress Skin: Normal Color, Warm, Dry Head: Atraumatic, Normacephalic Eye(s): bilateral: Normal Inspection Oral Mucosa: Moist Back: No CVA Tenderness, No Vertebral Tenderness, No Paraspinal Tenderness Extremity: Normal ROM (x4) Neurological/Psych: Oriented x3, Normal Speech, Normal Motor, Normal Sensation Gait: Steady ED Course And Treatment O2 Sat by Pulse Oximetry: 98 (Room air) Pulse Ox Interpretation: Normal Progress Note: Patient is ambulatory in the ER without any pain or discomfort. Will discharge home with instructions to follow up with PMD. 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 - Scribe Statement The provider has reviewed the documentation as recorded by the Scribyemi Cruz All medical record entries made by the Scribe were at my direction and personally dictated by me. I have reviewed the chart and agree that the record accurately reflects my personal performance of the history, physical exam, medical decision making, and the department course for this patient. I have also personally directed, reviewed, and agree with the discharge instructions and disposition.
== END 2017-10-07 04:09 | disposition home or self-care (01) ==
LOC: SUPCPDRO 03:31 → C.ER 03:31
DX: Z00.00 Encounter for general adult medical examination without abnormal findings (principal)

== ENCOUNTER 2017-12-13 04:35 | Emergency (ER) | payer MEDICAID, OTHER ==
[2017-12-13 04:36] VITALS: BMI 40.6
[2017-12-13 04:46] VITALS: TEMP 98
--- NOTE | 2017-12-13 04:54 | C.PDOC ---
History Of Present Illness 32 y/o undomiciled female with a history of substance abuse presents to the ED due to not "feeling right". admites to some marijuana use earlier in night. pt ambulatory in er, speaking full sentneces, oriented x 3, clinically sober.Patient is well known to this ER for bed seeking behavior. h/o of homeless. She denies any suicidal or homicidal ideation. PMD: Neil Dodd Time Seen by Provider: 12/13/17 04:44 Chief Complaint (Nursing): Substance Abuse History Per: Patient History/Exam Limitations: other (marijuana usage) Onset/Duration Of Symptoms: Hrs Current Symptoms Are (Timing): Still Present Modifying Factor(s): Marijuana Associated Symptoms: denies: Suicidal Thoughts, Suicidal Plan Recent travel outside of the [place]: No Past Medical History Vital Signs: Last Vital Signs Temp 98.0 F 12/13/17 04:44 Pulse 82 12/13/17 06:00 Resp 20 12/13/17 06:00 BP 140/78 12/13/17 06:00 Pulse Ox 97 12/13/17 06:00 - Medical History PMH: Anxiety, Asthma, Back Problems, Bipolar Disorder, Depression, HTN, Schizophrenia, Sleep Apnea Denies: Diabetes, Hepatitis, HIV, Chronic Kidney Disease, Seizures, Sexually Transmitted Disease Surgical History: Cholecystectomy, Hernia Repair (Umbilical), (x4) - [facility] Procedures GROUP PSYCHOTHERAPY (03/15/16) INDIVID PSYCHOTHERAP NEC (07/19/14) INDIVIDUAL PSYCHOTHERAPY, SUPPORTIVE (03/15/16) INJECT/INFUSE ELECTROLYT (03/24/15) INJECT/INFUSE NEC (03/24/15) MEDICATION MANAGEMENT (08/04/16) NEBULIZER THERAPY (01/28/15) OTHER GROUP THERAPY (07/19/14) PSYCHIA INTERV/EVAL NEC (03/20/15) PSYCHIAT DRUG THERAP NEC (08/18/14) Family History: States: Unknown Family Hx - Social History Hx Tobacco Use: Yes Hx Alcohol Use: Yes Hx Substance Use: Yes - Immunization History Hx Tetanus Toxoid Vaccination: No Hx Influenza Vaccination: No Hx Pneumococcal Vaccination: No Review Of Systems Except As Marked, All Systems Reviewed And Found Negative. Neurological: Positive for: Other (not feeling right after smoking marijuana) Physical Exam - Physical Exam Appears: Well, No Acute Distress, Other (drinking water at bed side) Skin: Normal Color, Warm, Dry Head: Atraumatic, Normacephalic Eye(s): bilateral: Normal Inspection, PERRL, EOMI Nose: Normal Throat: Normal Neck: Normal Cardiovascular: Rhythm Regular, No Murmur Respiratory: Normal Breath Sounds, No Decreased Breath Sounds Gastrointestinal/Abdominal: Normal Exam Back: Normal Inspection, No CVA Tenderness, No Vertebral Tenderness Extremity: Normal ROM, No Pedal Edema Neurological/Psych: Oriented x3 ED Course And Treatment O2 Sat by Pulse Oximetry: 100 (RA) Pulse Ox Interpretation: Normal Medical Decision Making Medical Decision Making: awake oriented x 3 steady gait. stable for dc. Disposition - Disposition Referrals: [facility] [Outside] [facility] [Outside] Disposition: HOME/ ROUTINE Disposition Time: 05:02 Condition: STABLE Additional Instructions: follow up in clinic. return to er with worsening symptoms or concerns. Forms: [facility] (Djiboutian) - Clinical Impression Clinical Impression: Homeless
[2017-12-13 06:20] VITALS: BP 140/78; PULSE 82; RESP 20
[2017-12-13 06:44] VITALS: O2SAT 100
== END 2017-12-13 06:17 | disposition home or self-care (01) ==
LOC: C.ER 04:35
DX: Z59.0 Homelessness (principal); F20.9 Schizophrenia, unspecified; I10 Essential (primary) hypertension; Z72.0 Tobacco use

== ENCOUNTER 2017-12-26 10:06 | Emergency (ER) | payer MEDICAID, OTHER ==
[2017-12-26 10:06] VITALS: BMI 40.6
[2017-12-26 10:26] VITALS: RESP 20
[2017-12-26 11:47] LABS: HCG,QUALITATIVE URINE NEGATIVE (NEGATIVE)
[2017-12-26 11:48] LABS: SQUAMOUS EPITHIAL 3 /hpf (0-5); URINE BILIRUBIN NEGATIVE (NEGATIVE); URINE BLOOD NEGATIVE (NEGATIVE); URINE CLARITY Clear (Clear); URINE COLOR Yellow (YELLOW); URINE GLUCOSE (UA) NORMAL (Normal); URINE LEUKOCYTE ESTERASE NEG Leu/uL (Negative); URINE PROTEIN NEGATIVE (NEGATIVE); URINE UROBILINOGEN NORMAL mg/dL (0.2-1.0)
--- NOTE | 2017-12-26 13:17 | CT ---
PROCEDURE: CT Abdomen and Pelvis without intravenous contrast HISTORY: flank pain COMPARISON: None. TECHNIQUE: Multiple contiguous axial images were performed through the abdomen and pelvis without the use of intravenous contrast. Subsequently, sagittal and coronal reformatted images were obtained. Radiation dose: Total exam DLP = 953 mGy-cm. This CT exam was performed using one or more of the following dose reduction techniques: Automated exposure control, adjustment of the mA and/or kV according to patient size, and/or use of iterative reconstruction technique. FINDINGS: LOWER THORAX: Scattered atelectasis at the lung bases. LIVER: Unremarkable. No gross lesion or ductal dilatation. GALLBLADDER AND BILE DUCTS: Contracted gallbladder. PANCREAS: Unremarkable. No gross lesion or ductal dilatation. SPLEEN: Unremarkable. ADRENALS: Unremarkable. No mass. KIDNEYS AND URETERS: Partially malrotated right kidney. No gross calculi or hydronephrosis. VASCULATURE: Unremarkable. No aortic aneurysm. BOWEL: Unremarkable. No obstruction. No gross mural thickening. Under distended descending colon. APPENDIX: Unremarkable. Normal appendix. PERITONEUM: Unremarkable. No free fluid. No free air. LYMPH NODES: Few shotty inguinal and para-aortic lymph nodes; for example, a left para-aortic lymph node measures up to 1.7 centimeters. Left inguinal lymph nodes measure up to 2.2 centimeters and right inguinal lymph nodes measure up to 1.5 centimeters. BLADDER: Unremarkable. REPRODUCTIVE: Heterogeneous and prominent uterus with associated calcifications. BONES: Degenerative changes in the spine. OTHER FINDINGS: Reticulation and edema within the circumferential soft tissues. Some question of scarring and/or fibrosis with confluent low attenuation within the anterior midline anterior subcutaneous soft tissues extending to the anterior abdomen as demonstrated on series 3 images 90 through 110. Clinical correlation. IMPRESSION: 1. Some question of scarring and/or fibrosis with confluent low attenuation within the anterior midline anterior subcutaneous soft tissues extending to the anterior abdomen as demonstrated on series 3 images 90 through 110. Nonspecific. Uncertain clinical etiology. Clinical correlation. 2. Few shotty inguinal and para-aortic lymph nodes for example a left para-aortic lymph node measures up to 1.7 centimeters. Left inguinal lymph nodes measure up to 2.2 centimeters and right inguinal lymph nodes measure up to 1.5 centimeters. 3. Heterogeneous and prominent uterus with associated calcifications. 4. Under distended descending colon. 5. Additional findings as above.
--- NOTE | 2017-12-26 13:55 | C.PDOC ---
History Of Present Illness 32-year-old female, well known to ER staff, whose past medical history includes hypertension, schizoaffective disorder, alcohol abuse, anxiety and asthma, presents to the emergency department with complaints of pain to her left side. Patient is homeless and has been seen in ED and several other ED's for similar complaint. Patient denies any fever, chills, chest pain, shortness of breath, nausea, vomiting, diarrhea, urinary symptoms, back pain, neck pain, headache, dizziness, or any other complaints. Time Seen by Provider: 12/26/17 10:35 Chief Complaint (Nursing): Abdominal Pain History Per: Patient History/Exam Limitations: no limitations Past Medical History Reviewed: Historical Data, Nursing Documentation, Vital Signs Vital Signs: Last Vital Signs Temp 97.8 F 12/26/17 15:03 Pulse 74 12/26/17 15:03 Resp 20 12/26/17 15:03 BP 122/72 12/26/17 15:03 Pulse Ox 97 12/26/17 15:03 - Medical History PMH: Anxiety (as per previous triage), Asthma, Back Problems, Bipolar Disorder ( as per previous triage), Depression (as per previous triage), HTN, Schizophrenia (as per previous triage), Sleep Apnea Surgical History: Cholecystectomy, Hernia Repair (Umbilical), (x4) - [facility] Procedures GROUP PSYCHOTHERAPY (03/15/16) INDIVID PSYCHOTHERAP NEC (07/19/14) INDIVIDUAL PSYCHOTHERAPY, SUPPORTIVE (03/15/16) INJECT/INFUSE ELECTROLYT (03/24/15) INJECT/INFUSE NEC (03/24/15) MEDICATION MANAGEMENT (08/04/16) NEBULIZER THERAPY (01/28/15) OTHER GROUP THERAPY (07/19/14) PSYCHIA INTERV/EVAL NEC (03/20/15) PSYCHIAT DRUG THERAP NEC (08/18/14) Family History: States: No Known Family Hx - Social History Hx Tobacco Use: Yes Hx Alcohol Use: No Hx Substance Use: No - Immunization History Hx Tetanus Toxoid Vaccination: No Hx Influenza Vaccination: No Hx Pneumococcal Vaccination: No Review Of Systems Constitutional: Negative for: Fever Cardiovascular: Negative for: Chest Pain, Palpitations Respiratory: Negative for: Shortness of Breath Gastrointestinal: Negative for: Vomiting, Abdominal Pain Genitourinary: Negative for: Dysuria, Hematuria Musculoskeletal: Positive for: Back Pain Skin: Negative for: Rash Neurological: Negative for: Weakness Physical Exam - Physical Exam Appears: Non-toxic, No Acute Distress Skin: Normal Color, Warm, Dry, No Rash Head: Normacephalic Eye(s): bilateral: PERRL Nose: Normal Oral Mucosa: Moist Lips: Normal Appearing Neck: Normal ROM Cardiovascular: Rhythm Regular, No Murmur Respiratory: Normal Breath Sounds, No Accessory Muscle Use Gastrointestinal/Abdominal: Soft, No Tenderness Back: No CVA Tenderness Extremity: Normal ROM, No Deformity, No Swelling Neurological/Psych: Oriented x3, Normal Speech ED Course And Treatment O2 Sat by Pulse Oximetry: 96 - CT Scan/US CT Abd/Pel Other Rad Studies (CT/US): Read By Radiologist, Radiology Report Reviewed CT/US Interpretation: Accession No. : [id number]. Patient Name / ID : GIDEON PHAM / [id number]. Exam Date : 12/26/2017 12:47:05 ( Approved ). Study Comment : Sex / Age : F / 32Y. Creator : Fan Sumner MD. Dictator : Fan Sumner MD. Power Hammer Operator : Medical Social Worker : Fan Sumner MD. Approver2 : Report Date : 12/26/2017 13:15:45. My Comment : . PROCEDURE: CT Abdomen and Pelvis without intravenous contrast. HISTORY: flank pain. COMPARISON: None. TECHNIQUE: Multiple contiguous axial images were performed through the abdomen and pelvis without the use of intravenous contrast. Subsequently, sagittal and coronal reformatted images were obtained. Radiation dose: Total exam DLP = 953 mGy-cm. This CT exam was performed using one or more of the following dose reduction techniques: Automated exposure control, adjustment of the mA and/or kV according to patient size, and/ or use of iterative reconstruction technique. FINDINGS: LOWER THORAX: Scattered atelectasis at the lung bases. LIVER: Unremarkable. No gross lesion or ductal dilatation. GALLBLADDER AND BILE DUCTS: Contracted gallbladder. PANCREAS: Unremarkable. No gross lesion or ductal dilatation. SPLEEN: Unremarkable. ADRENALS: Unremarkable. No mass. KIDNEYS AND URETERS: Partially malrotated right kidney. No gross calculi or hydronephrosis. VASCULATURE: Unremarkable. No aortic aneurysm. BOWEL: Unremarkable. No obstruction. No gross mural thickening. Under distended descending colon. APPENDIX: Unremarkable. Normal appendix. PERITONEUM: Unremarkable. No free fluid. No free air. LYMPH NODES: Few shotty inguinal and para-aortic lymph nodes; for example, a left para-aortic lymph node measures up to 1.7 centimeters. Left inguinal lymph nodes measure up to 2.2 centimeters and right inguinal lymph nodes measure up to 1.5 centimeters. BLADDER: Unremarkable. REPRODUCTIVE: Heterogeneous and prominent uterus with associated calcifications. BONES: Degenerative changes in the spine. OTHER FINDINGS: Reticulation and edema within the circumferential soft tissues. Some question of scarring and/or fibrosis with confluent low attenuation within the anterior midline anterior subcutaneous soft tissues extending to the anterior abdomen as demonstrated on series 3 images 90 through 110. Clinical correlation. IMPRESSION: 1. Some question of scarring and/or fibrosis with confluent low attenuation within the anterior midline anterior subcutaneous soft tissues extending to the anterior abdomen as demonstrated on series 3 images 90 through 110. Nonspecific. Uncertain clinical etiology. Clinical correlation. 2. Few shotty inguinal and para-aortic lymph nodes for example a left para-aortic lymph node measures up to 1.7 centimeters. Left inguinal lymph nodes measure up to 2.2 centimeters and right inguinal lymph nodes measure up to 1.5 centimeters. 3. Heterogeneous and prominent uterus with associated calcifications. 4. Under distended descending colon. 5. Additional findings as above. Progress Note: CT abd/pel and UA ordered and reviewed. On re-evaluation patient is alert and awake, ambulating in ED, CT finding ertr discussed, copy of the CT report was given to the patient. She was instructed to f/u with her PMD within 2 -3 days. Disposition - Disposition Referrals: Vignesh Trejo MD [Medical Doctor] - Disposition: HOME/ ROUTINE Disposition Time: 14:44 Condition: STABLE Additional Instructions: Follow up with your PMD within 1-2 dyas. Return to ED if feel worse. Prescriptions: Dicyclomine [Bentyl] 20 mg PO TID #30 tab Instructions: Flank Pain (DC) Forms: [employer] (Greek) - Clinical Impression Clinical Impression: Flank pain - Scribe Statement The provider has reviewed the documentation as recorded by the Scribe (Liliana Camp) All medical record entries made by the Scribe were at my direction and personally dictated by me. I have reviewed the chart and agree that the record accurately reflects my personal performance of the history, physical exam, medical decision making, and the department course for this patient. I have also personally directed, reviewed, and agree with the discharge instructions and disposition.
[2017-12-26 15:03] VITALS: BP 122/72; PULSE 74; TEMP 97.8
[2017-12-26 18:24] VITALS: O2SAT 96
== END 2017-12-26 16:02 | disposition home or self-care (01) ==
LOC: C.ER 10:06
DX: R10.9 Unspecified abdominal pain (principal)

== ENCOUNTER 2017-12-31 02:26 | Emergency (ER) | payer MEDICAID, OTHER ==
[2017-12-31 02:26] VITALS: BMI 40.6
[2017-12-31 03:42] VITALS: BP 133/84; PULSE 70; TEMP 98.5; O2SAT 97
--- NOTE | 2017-12-31 03:47 | C.PDOC ---
History Of Present Illness 32 year old female who is homeless presents to the ER stating she is hearing voices and needs to rest. Patient iswell known to ER with multiple visits here and other nearby hospitals with vague complaints and bed seeking behavior. Denies physical complaints at this time. Chief Complaint (Nursing): Medical Clearance History Per: Patient History/Exam Limitations: no limitations Onset/Duration Of Symptoms: Hrs Current Symptoms Are (Timing): Still Present Recent travel outside of the [place]: No Past Medical History Reviewed: Historical Data, Nursing Documentation, Vital Signs Vital Signs: Last Vital Signs Temp 98.5 F 12/31/17 03:15 Pulse 70 12/31/17 03:15 Resp 18 12/31/17 03:15 BP 133/84 12/31/17 03:15 Pulse Ox 97 12/31/17 04:16 - Medical History PMH: Anxiety, Asthma, Back Problems, Bipolar Disorder, Depression, HTN, Schizophrenia, Sleep Apnea Surgical History: Cholecystectomy, Hernia Repair (Umbilical), (x4) - [facility] Procedures GROUP PSYCHOTHERAPY (03/15/16) INDIVID PSYCHOTHERAP NEC (07/19/14) INDIVIDUAL PSYCHOTHERAPY, SUPPORTIVE (03/15/16) INJECT/INFUSE ELECTROLYT (03/24/15) INJECT/INFUSE NEC (03/24/15) MEDICATION MANAGEMENT (08/04/16) NEBULIZER THERAPY (01/28/15) OTHER GROUP THERAPY (07/19/14) PSYCHIA INTERV/EVAL NEC (03/20/15) PSYCHIAT DRUG THERAP NEC (08/18/14) Family History: States: Unknown Family Hx - Social History Hx Tobacco Use: Yes Hx Alcohol Use: No Hx Substance Use: No - Immunization History Hx Tetanus Toxoid Vaccination: No Hx Influenza Vaccination: No Hx Pneumococcal Vaccination: No Review Of Systems Constitutional: Negative for: Fever, Chills Cardiovascular: Negative for: Chest Pain, Palpitations Respiratory: Negative for: Cough, Shortness of Breath Gastrointestinal: Negative for: Nausea, Vomiting, Abdominal Pain Psych: Positive for: Other (Hearing voices) Physical Exam - Physical Exam Appears: Non-toxic, Other (Sleeping but arousable, snoring, obese) Skin: Normal Color, Warm, Dry Head: Atraumatic, Normacephalic Eye(s): bilateral: Normal Inspection Oral Mucosa: Moist Chest: Symmetrical, No Tenderness Cardiovascular: Rhythm Regular Respiratory: Normal Breath Sounds, No Rales, No Rhonchi, No Wheezing Gastrointestinal/Abdominal: Soft, No Tenderness Neurological/Psych: Normal Speech ED Course And Treatment O2 Sat by Pulse Oximetry: 97 (Room air) Pulse Ox Interpretation: Normal Medical Decision Making Medical Decision Making: Prior records reviewed. Patient recently worked up for abdominal pain with labs and CT and no acute findings. Accucheck orded and reviewd. Patient is resting comfortably in no distress, vitals are stable, patient is requesting a place to spend the night, will allow to rest and discharge in morning Disposition Counseled Patient/Family Regarding: Diagnosis, Need For Followup - Disposition Referrals: [facility] [Outside] Disposition: HOME/ ROUTINE Disposition Time: 05:40 Condition: STABLE Instructions: Schizoaffective Disorder (DC) Forms: [employer] (Persian) - POA Present On Arrival: None - Clinical Impression Clinical Impression: Schizoaffective disorder, Malingerer, H/O sleep apnea - PA / CONSTRUCTION TEACHER / Resident Statement MD/DO has reviewed & agrees with the documentation as recorded. - Scribe Statement The provider has reviewed the documentation as recorded by the Scribe Ko Cruz All medical record entries made by the Scribe were at my direction and personally dictated by me. I have reviewed the chart and agree that the record accurately reflects my personal performance of the history, physical exam, medical decision making, and the department course for this patient. I have also personally directed, reviewed, and agree with the discharge instructions and disposition.
[2017-12-31 06:01] VITALS: RESP 16
== END 2017-12-31 05:56 | disposition home or self-care (01) ==
LOC: C.ER 02:26
DX: F25.9 Schizoaffective disorder, unspecified (principal); Z76.5 Malingerer [conscious simulation]; G47.30 Sleep apnea, unspecified; I10 Essential (primary) hypertension; Z59.0 Homelessness; Z72.0 Tobacco use

== ENCOUNTER 2018-01-11 04:21 | Inpatient (IN) | payer MEDICAID, OTHER ==
[2018-01-11 04:21] VITALS: BMI 40.6
[2018-01-11 04:35] VITALS: O2SAT 98
--- NOTE | 2018-01-11 04:47 | C.PDOC ---
History Of Present Illness 32 year old female with PMHx of depression presents to the ED for evaluation of suicidal ideation, auditory hallucinations. Patient was seen at [facility] requesting "place to sleep". Shortly after being D/C patient went to [facility] [employer] stating she wanted to kill herself, EMS were called and brought the patient to the ED. Patient states she was smoking marijuana today and is hearing voices that are telling her to hang herself. Patient denies alcohol use, IV drug use, CP, SOB, visual hallucinations. Chief Complaint (Nursing): Medical Clearance History Per: Patient History/Exam Limitations: no limitations Onset/Duration Of Symptoms: Hrs Current Symptoms Are (Timing): Still Present Reports Recently: Seen In ED ([facility]) Recent travel outside of the [place]: No Additional History Per: Patient Past Medical History Reviewed: Historical Data, Nursing Documentation, Vital Signs Vital Signs: Last Vital Signs Temp 98.5 F 01/11/18 04:35 Pulse 64 01/11/18 04:35 Resp 20 01/11/18 04:35 BP 141/81 01/11/18 04:35 Pulse Ox 98 01/11/18 05:08 - Medical History PMH: Anxiety, Asthma, Back Problems, Bipolar Disorder, Depression, HTN, Schizophrenia, Sleep Apnea Denies: Diabetes, Hepatitis, HIV, Chronic Kidney Disease, Seizures, Sexually Transmitted Disease Surgical History: Cholecystectomy, Hernia Repair (Umbilical), (x4) - [facility] Procedures GROUP PSYCHOTHERAPY (03/15/16) INDIVID PSYCHOTHERAP NEC (07/19/14) INDIVIDUAL PSYCHOTHERAPY, SUPPORTIVE (03/15/16) INJECT/INFUSE ELECTROLYT (03/24/15) INJECT/INFUSE NEC (03/24/15) MEDICATION MANAGEMENT (08/04/16) NEBULIZER THERAPY (01/28/15) OTHER GROUP THERAPY (07/19/14) PSYCHIA INTERV/EVAL NEC (03/20/15) PSYCHIAT DRUG THERAP NEC (08/18/14) Family History: States: Unknown Family Hx - Social History Hx Tobacco Use: Yes Hx Alcohol Use: No Hx Substance Use: Yes - Immunization History Hx Tetanus Toxoid Vaccination: No Hx Influenza Vaccination: No Hx Pneumococcal Vaccination: No Review Of Systems Constitutional: Negative for: Fever, Chills Cardiovascular: Negative for: Chest Pain Gastrointestinal: Negative for: Nausea, Vomiting Skin: Negative for: Rash Psych: Positive for: Depression, Suicidal ideation Physical Exam - Physical Exam Appears: Non-toxic, Other (bizarre, obese) Skin: Normal Color, Warm, Dry Head: Atraumatic, Normacephalic Eye(s): bilateral: Normal Inspection Oral Mucosa: Moist Neck: Normal ROM, Supple Chest: Symmetrical Cardiovascular: Rhythm Regular, No Murmur Respiratory: Normal Breath Sounds, No Rales, No Rhonchi, No Wheezing Gastrointestinal/Abdominal: Soft, No Tenderness, No Guarding, No Rebound, Other (protuberajnt) Extremity: Normal ROM, No Tenderness, No Swelling Pulses: Left Dorsalis Pedis: Normal, Right Dorsalis Pedis: Normal Neurological/Psych: Oriented x3, Normal Speech Gait: Steady ED Course And Treatment - Laboratory Results Result Diagrams: 01/11/18 05:11 01/11/18 05:11 O2 Sat by Pulse Oximetry: 98 (ON RA) Pulse Ox Interpretation: Normal Medical Decision Making Medical Decision Making: Impression: malingering/bed seeking behaviour vs SI Plan: * LAbs * UA * Crisis Disposition - Disposition Disposition: HOSPITALIZED Disposition Time: 06:02 Condition: FAIR Forms: [employer] (Rwandan) - Clinical Impression Clinical Impression: Schizo affective schizophrenia, Suicidal ideation - Scribe Statement The provider has reviewed the documentation as recorded by the Scribe Saeed Martinez All medical record entries made by the Scribe were at my direction and personally dictated by me. I have reviewed the chart and agree that the record accurately reflects my personal performance of the history, physical exam, medical decision making, and the department course for this patient. I have also personally directed, reviewed, and agree with the discharge instructions and disposition.
[2018-01-11 05:17] LABS: BASO % 0.6 % (0.0-2.0); EOS # 0.3 K/uL (0.0-0.7); EOS % 3.8 % (0.0-4.0); HEMOGLOBIN 9.3 g/dL (11.0-16.0); LYMPH # 2.5 K/uL (1.0-4.3); LYMPH % 33.7 % (20.0-40.0); MEAN CELL VOLUME 70.8 fL (81.0-99.0); MEAN CORPUSCULAR HEMOGLOBIN 21.7 pg (27.0-31.0); MEAN CORPUSCULAR HGB CONC 30.7 g/dL (33.0-37.0); MEAN PLATELET VOLUME 8.6 fL (7.2-11.7); MONO # 0.4 K/uL (0.0-0.8); MONO % 5.7 % (0.0-10.0); NEUT # 4.2 K/uL (1.8-7.0); NEUT % 56.2 % (50.0-75.0); RBC 4.28 Mil/uL (3.80-5.20); RED CELL DISTRIBUTION WIDTH 19.3 % (11.5-14.5); WHITE BLOOD COUNT 7.5 K/uL (4.8-10.8)
[2018-01-11 05:27] LABS: SQUAMOUS EPITHIAL 3 /hpf (0-5); URINE BACTERIA RARE (<OCC); URINE BILIRUBIN NEGATIVE (NEGATIVE); URINE BLOOD NEGATIVE (NEGATIVE); URINE CLARITY Clear (Clear); URINE COLOR Yellow (YELLOW); URINE GLUCOSE (UA) NORMAL (Normal); URINE LEUKOCYTE ESTERASE NEG Leu/uL (Negative); URINE PROTEIN NEGATIVE (NEGATIVE); URINE UROBILINOGEN NORMAL mg/dL (0.2-1.0)
[2018-01-11 05:29] LABS: HCG,QUALITATIVE URINE NEGATIVE (NEGATIVE)
[2018-01-11 05:32] LABS: ACETAMINOPHEN < 10.0 ug/mL (10.0-30.0); ALBUMIN 3.7 g/dL (3.5-5.0); ALT/SGPT 18 U/L (9-52); AST/SGOT 24 U/L (14-36); BLOOD UREA NITROGEN 8 mg/dL (7-17); CALCIUM 8.6 mg/dl (8.6-10.4); GFR AFRICAN-AMERICAN > 60; GFR NON-AFRICAN AMERICAN > 60; SALICYLATE < 1.0 mg/dL 1
[2018-01-11 05:43] LABS: BARBITURATES, UR NEGATIVE (NEGATIVE); BENZODIAZEPINES, UR NEGATIVE (NEGATIVE); PHENCYCLIDINE, UR NEGATIVE (NEGATIVE)
[2018-01-11 06:26] LABS: OPIATES, UR NEGATIVE (NEGATIVE)
--- NOTE | 2018-01-11 09:52 | PCM.PSYCH ---
Initial Psychiatric Evaluation - Initial Psychiatric Evaluation Type of Admission: Voluntary Legal Status: Capacity Chief Complaint (in patient's own words): I was hearing voices History of Present Illness and Precipitating Events: This is a 32yo AAF, who was escorted to the ED by EMS because of disorganized behavior and suicidal ideation. Patient remained disorganized and internally preoccupied throughout the interview. She reports that she has history of schizoaffective disorder, and she has been hospitalized multiple times. Currently she is noncompliant with her medications. She remained paranoid, and delusional throughout the interview. During the interview, she became increasingly anxious and demanded to be discharged right away. When asked about the medications, she started crying loudly and became increasingly disorganized. Patient remained a poor historian. As per the ED notes, patient reported the following: "I went to the police;" I asked for help;" I heard voices talking to me;" They want me to kill myself;" They told me to hang myself;" The above command "voices" began sometime earlier this morning; Pt, however, denied having any actual suicide idx /intent and also denied having a hx of suicide attempts. However, Pt is not linked with any outpt service; Pt admits to a hx of "sometimes" using THC. However she denied any suicidal ideation or homicidal ideation. PMH: None reported Current Medications: Active Medications Generic Name Dose Route Start Last Admin Trade Name Freq PRN Reason Stop Dose Admin Pneumococcal Polyvalent Vaccine 0.5 ml 01/13/18 10:00 Pneumovax 23 Vaccine IM 01/13/18 10:01 .ONCE ONE Past Psychiatric History - Past Psychiatric History Previous Treatment History: Inpatient Pertinent Medical Hx (Current Medical&Sleep Prob, Allergies): Allergies Allergy/AdvReac Type Severity Reaction Status Date / Time nut - unspecified [nut] Allergy ANAPHYLAXIS Verified 01/11/18 01:20 shellfish derived Allergy ANAPHYLAXIS Verified 01/11/18 01:20 tomato Allergy ANAPHYLAXIS Verified 01/11/18 01:20 lactose intolerent Allergy Severe RASH Uncoded 01/11/18 01:20 mushroom Allergy Mild RASH Uncoded 01/11/18 01:20 No Known Home Med 01/11/18 Review of Systems - Review of Systems All systems: reviewed and no additional remarkable complaints except - Psychiatric Psychiatric: Anxiety, Auditory Hallucinations, Irritability, Paranoia Mental Status Examination - Personal Presentation Personal Presentation: Looks stated age - Affect Affect: Broad - Motor Activity Motor Activity: Psychomotor Agitation - Reliability in Providing Information Reliability in Providing Information: Poor, due to alteration in thoughts, Poor , due to altered mood - Speech Speech: Disorganized - Mood Mood: Depressed, Anxious - Formal Thought Process Formal Thought Process: Hallucinations, Delusions, Paranoia, Loosening of associations - Hallucinations/Delusions Hallucinations: Visual, Auditory Delusions: Persecution - Obsessions/Compulsions Obsessions: No Compulsions: No - Cognitive Functions Orientation: Person, Place, Situation, Time Sensorium: Alert Attention/Concentration: Attentive Abstract Thinking: [place] Estimate of Intelligence: Below average Judgement: Imparied, as evidence by: Poor judgement, Imparied, as evidence by: Lack of insight into illness - Risk Risk: Suicidal, Diminished functioning - Limitations Limitations: Living alone DSM 5 DX - DSM 5 DSM 5 Diagnosis: Schizoaffective disorder depressive type Cannabis use disorder moderate - Recommended/Plan of Treatment Treatment Recommendations and Plan of Treatment: Schizoaffective disorder depressive type CBT Psychoeducation Supportive therapy, group therapy, individual therapy Haldol 5 mg by mouth twice a day Cogentin 1 mg by mouth twice a day Trazodone 50 mg by mouth daily at bedtime Paxil 20 mg PO Daily Seroquel 50 mg by mouth daily at bedtime Cannabis use disorder moderate CBT Psychoeducation Supportive therapy, individual therapy Use DC for abstinence
--- NOTE | 2018-01-11 11:31 | PCM.BM ---
<Johnie Chambers - Last Filed: 01/11/18 11:29> Treatment Plan Problems - Problems identified on initial assessmt Depression Date Initiated: 01/11/18 Time Initiated: :29 Assessment reference: NA Auditory Hallucinations Date Initiated: 01/11/18 Time Initiated: :29 Assessment reference: NA Treatment assets and liabiliti Patient Assests: self-reliant, ADL independent, negotiates basic needs Patient Liabilities: live alone (Lives alone), financial problems (Unemployed), medical problems (HTN, Obesity, Asthma, Sciatica) - Milieu Protocol Maintain good personal hygiene: daily Encourage regular showers, daily Remind patient to perform daily oral care, every shift Assist patient to perform ADL's Conduct patient checks and document Observation sheet: Q15 minutes (For safety) Maintain personal safety: every shift Educate patient to report safety concerns to staff, every shift Monitor environment for contraband/sharps Medication safety: Monitor for expected outcome, potential side effects: every shift, Assess barriers to learning: every shift, Assess readiness for medication education: every shift <Marshall Payne - Last Filed: 01/11/18 11:35> - Diagnosis (1) Schizo affective schizophrenia Status: Acute Interventions: 01/11/18 11:35 * Assess/adjust medications daily and /or as needed * See patient on an individual basis 7x/week to assess status of hallucinations * Discuss risks, benefits, side effects and alternatives of medications * <Arielle Tanner - Last Filed: 01/11/18 16:24> Family Contact Family involvement: Patient does not wish Family/SO involvement Family contact: Patient declines to allow family contact at present - Goals for Treatment Patient goals for treatment: "I want to go home!" Discharge/Continuing Care - Education Needs Education Needs: Patient Medication, Patient Diagnosis/Disease Process, Patient Coping Skills, Patient Placement options, Patient Community resources - Discharge Discharge Criteria: Free of Suicidal thoughts, Normal sleep pattern, Ability to care for self, No longer exhibiting s/s of withdrawal, Reduction of target symptoms Discharge to:: Home - Treatment Team Participation Discussed with Family/SO: No Was Patient/Family/SO present at Treatment Team Meeting: Yes
[2018-01-11] MEDS ORDERED: DiphenhydrAMINE 50 mg/ml Inj IM PRN (11:35)
[2018-01-12 06:35] VITALS: RESP 18
--- NOTE | 2018-01-12 10:12 | PCM.PYCHPN ---
Psychiatric Progress Note - Psychiatric Progress Note Patient Chief Complaint: I was hearing voices Mental Status Examination - Cognitive Function Orientation: Person, Place, Situation, Time - Mood Mood: Depressed, Anxious - Affect Affect: Broad - Formal Thought Process Formal Thought Process: Hallucinations, Delusions, Paranoia, Loosening of associations - Homicidal Ideation Homicidal Ideation: No Goal/Treatment Plan - Goal/Treatment Plan Progress Toward Problem(s) and Goals/Treatment Plan: Schizoaffective disorder depressive type CBT Psychoeducation Supportive therapy, group therapy, individual therapy Haldol 5 mg by mouth twice a day Cogentin 1 mg by mouth twice a day Trazodone 50 mg by mouth daily at bedtime Paxil 20 mg PO Daily Seroquel 50 mg by mouth daily at bedtime Cannabis use disorder moderate CBT Psychoeducation Supportive therapy, individual therapy Use OK for abstinence
[2018-01-13] MEDS ORDERED: Pneumococcal 23-Valent Vaccine IM ONE (10:00)
--- NOTE | 2018-01-13 14:38 | PCM.PYCHPN ---
Psychiatric Progress Note - Psychiatric Progress Note Patient seen today, length of contact: 15 mins Patient Chief Complaint: I was hearing voices Problems Identified/Issues Discussed: Patient is seen and evaluated, chart reviewed, and discussed with nurse. Patient is disorganized and extremely irritable. Patient refuses to take her medications at times. The medications she agreed to take did help her compared to yesterday. Yesterday she was very irritable and complained of a heavy head filled with voices. Patient at this time does not complaining of hearing voices. Patient does not participate in group activities and is often found walking around the unit telling the staff she wants to be discharged. Patient continues on repeating she wants to be discharged. Patient signed a 48 hour leave notice yesterday at 9:55AM. She remains paranoid and delusion when asked questions. Patient denies suicidal ideations. Supportive therapy and psychoeducation were given. After care discussed. Medication Change: Yes (increase haldol) Medical Record Reviewed: Yes Mental Status Examination - Cognitive Function Orientation: Person, Place, Situation, Time Attention: Poor Concentration: Poor Association: Loose Fund of Knowledge: Poor - Mood Mood: Depressed, Anxious - Affect Affect: Constricted - Speech Speech: Loud - Formal Thought Process Formal Thought Process: Hallucinations, Delusions, Paranoia, Loosening of associations - Suicidal Ideation Suicidal Ideation: No - Homicidal Ideation Homicidal Ideation: No Goal/Treatment Plan - Goal/Treatment Plan Need for Continued Stay: Discharge may exacerbated symptoms, Severe functional impairment Progress Toward Problem(s) and Goals/Treatment Plan: Schizoaffective disorder depressive type CBT Psychoeducation Supportive therapy, group therapy, individual therapy Haldol 5 mg by mouth twice a day Cogentin 1 mg by mouth twice a day Trazodone 50 mg by mouth daily at bedtime Paxil 20 mg PO Daily Seroquel 50 mg by mouth daily at bedtime Cannabis use disorder moderate CBT Psychoeducation Supportive therapy, individual therapy Use [place] for abstinence
[2018-01-14 06:26] VITALS: BP 134/67; PULSE 61; TEMP 97.4
--- NOTE | 2018-01-14 09:49 | PCM.PYCHDC ---
Mental Status Examination - Mental Status Examination Orientation: Person, Place, Situation, Time Memory: Intact Mood: Neutral Affect: Constricted Speech: Soft Attention: WNL Concentration: WNL Formal Thought Process: No Impairment Description of patient's judgement and insight: good, fair Psychotic Thoughts and Behaviors: denies any AVH Suicidal Ideation: No Current Homicidal Ideation?: No Discharge Summary - Discharge Note Reason for Hospitalization: This is a 32yo AAF, who was escorted to the ED by EMS because of disorganized behavior and suicidal ideation. Patient remained disorganized and internally preoccupied throughout the interview. She reports that she has history of schizoaffective disorder, and she has been hospitalized multiple times. Currently she is noncompliant with her medications. She remained paranoid, and delusional throughout the interview. During the interview, she became increasingly anxious and demanded to be discharged right away. When asked about the medications, she started crying loudly and became increasingly disorganized. Patient remained a poor historian. As per the ED notes, patient reported the following: "I went to the police;" I asked for help;" I heard voices talking to me;" They want me to kill myself;" They told me to hang myself;" The above command "voices" began sometime earlier this morning; Pt, however, denied having any actual suicide idx /intent and also denied having a hx of suicide attempts. However, Pt is not linked with any outpt service; Pt admits to a hx of "sometimes" using THC. However she denied any suicidal ideation or homicidal ideation. Consultations:: List each consultation separately and include: 1. Reason for request. 2. Findings. 3. Follow-up Summary of Hospital Course include:: 1. Description of specific treatment plan utilized for patients during their course of treatmen. 2. Summarize the time- course for resolution of acute symptoms and/or regressed behaviors. 3. Describe issues identified and worked on during hospitalization. 4. Describe medication utilized. 5. Describe medical problems identified and treated. 6. Reassessment of suicide risk Summary of Hospital Course: This is a 32yo AAF, who was escorted to the ED by EMS because of disorganized behavior and suicidal ideation. Patient remained disorganized and internally preoccupied throughout the interview. She reports that she has history of schizoaffective disorder, and she has been hospitalized multiple times. Currently she is noncompliant with her medications. She remained paranoid, and delusional throughout the interview. During the interview, she became increasingly anxious and demanded to be discharged right away. When asked about the medications, she started crying loudly and became increasingly disorganized. Patient remained a poor historian. As per the ED notes, patient reported the following: "I went to the police;" I asked for help;" I heard voices talking to me;" They want me to kill myself;" They told me to hang myself;" The above command "voices" began sometime earlier this morning; Pt, however, denied having any actual suicide idx /intent and also denied having a hx of suicide attempts. However, Pt is not linked with any outpt service; Pt admits to a hx of "sometimes" using THC. However she denied any suicidal ideation or homicidal ideation. PMH: None reported - Diagnosis (1) Schizo affective schizophrenia Current Visit: Yes Status: Acute - Final Diagnosis (DSM 5) Condition upon Discharge: FAIR Disposition: HOME/ ROUTINE Follow-up Treatment Plan: Schizoaffective disorder depressive type CBT Psychoeducation Supportive therapy, group therapy, individual therapy Haldol 5 mg by mouth twice a day Cogentin 1 mg by mouth twice a day Trazodone 50 mg by mouth daily at bedtime Paxil 20 mg PO Daily Seroquel 50 mg by mouth daily at bedtime Cannabis use disorder moderate CBT Psychoeducation Supportive therapy, individual therapy Use [place] for abstinence Prescriptions/Medication Reconciliation: Benztropine [Cogentin] 1 mg PO BID #60 tab Haloperidol [Haldol] 10 mg PO BID #60 tab PARoxetine [Paxil] 20 mg PO QAM #30 tab traZODone [Desyrel] 50 mg PO HS #30 tab
== END 2018-01-14 09:55 | disposition home or self-care (01) | DRG 430 ==
LOC: C.ER 04:21 → C.5E 05:53
PROVIDERS: ADMIT Psychiatry & Neurology Psychiatry; ATTEND Psychiatry & Neurology Psychiatry
PROC: GZHZZZZ Group Psychotherapy (ICD-10-PCS; principal; 2018-01-11)
PROC: HZ52ZZZ Individual Psychotherapy for Substance Abuse Treatment, Cognitive-Behavioral (ICD-10-PCS; 2018-01-11)
PROC: GZ58ZZZ Individual Psychotherapy, Cognitive-Behavioral (ICD-10-PCS; 2018-01-11)
PROC: GZ56ZZZ Individual Psychotherapy, Supportive (ICD-10-PCS; 2018-01-11)
PROC: HZ59ZZZ Individual Psychotherapy for Substance Abuse Treatment, Supportive (ICD-10-PCS; 2018-01-11)
PROC: HZ56ZZZ Individual Psychotherapy for Substance Abuse Treatment, Psychoeducation (ICD-10-PCS; 2018-01-11)
PROC: HZ42ZZZ Group Counseling for Substance Abuse Treatment, Cognitive-Behavioral (ICD-10-PCS; 2018-01-11)
PROC: HZ46ZZZ Group Counseling for Substance Abuse Treatment, Psychoeducation (ICD-10-PCS; 2018-01-11)
DX: F25.1 Schizoaffective disorder, depressive type (principal); F12.10 Cannabis abuse, uncomplicated; R45.851 Suicidal ideations; F31.9 Bipolar disorder, unspecified; G47.30 Sleep apnea, unspecified; I10 Essential (primary) hypertension; J45.909 Unspecified asthma, uncomplicated; Z87.891 Personal history of nicotine dependence; Z91.14 Patient's other noncompliance with medication regimen

== ENCOUNTER 2018-02-02 01:22 | Emergency (ER) | payer MEDICAID, OTHER ==
[2018-02-02 01:22] VITALS: BMI 40.4
--- NOTE | 2018-02-02 01:38 | C.PDOC ---
History Of Present Illness 33 year old female presents to the ER requesting a place to spend the night, no other complaints. Patient was just released from [facility] for the same thing. Time Seen by Provider: 02/02/18 01:36 Chief Complaint (Nursing): Substance Abuse History Per: Patient History/Exam Limitations: no limitations Onset/Duration Of Symptoms: Hrs Current Symptoms Are (Timing): Still Present Suicide/Self Injury Attempted (Context): None Severity: None Pain Scale Rating Of: 0 Associated Symptoms: denies: Depression, Suicidal Thoughts Involuntary Hold By: None Recent travel outside of the [place]: No Past Medical History Reviewed: Historical Data, Nursing Documentation, Vital Signs Vital Signs: Last Vital Signs Temp 97.7 F 02/02/18 01:25 Pulse 69 02/02/18 01:25 Resp 16 02/02/18 01:25 BP 144/94 H 02/02/18 01:25 Pulse Ox 97 02/02/18 01:25 - Medical History PMH: Anxiety, Asthma, Back Problems, Bipolar Disorder, Depression, HTN, Schizophrenia, Sleep Apnea Surgical History: Cholecystectomy, Hernia Repair (Umbilical), (x4) - [facility] Procedures GROUP SHOE PULLER FOR SUBSTANCE ABUSE TREATMENT, PSYCHOEDUCATION (01/11/18) GROUP SHOE PULLER FOR SUBSTANCE ABUSE, COGNITIVE BEHAVIORAL (01/11/18) GROUP PSYCHOTHERAPY (01/11/18) INDIV PSYCHOTHERAPY FOR SUBSTANCE ABUSE TREATMENT, SUPPORT (01/11/18) INDIV PSYCHOTHERAPY FOR SUBSTANCE ABUSE, COGNITIV BEHAVIORAL (01/11/18) INDIV PSYCHOTHERAPY FOR SUBSTANCE ABUSE, PSYCHOEDUCATION (01/11/18) INDIVID PSYCHOTHERAP NEC (07/19/14) INDIVIDUAL PSYCHOTHERAPY, COGNITIVE-BEHAVIORAL (01/11/18) INDIVIDUAL PSYCHOTHERAPY, SUPPORTIVE (01/11/18) INJECT/INFUSE ELECTROLYT (03/24/15) INJECT/INFUSE NEC (03/24/15) MEDICATION MANAGEMENT (08/04/16) NEBULIZER THERAPY (01/28/15) OTHER GROUP THERAPY (07/19/14) PSYCHIA INTERV/EVAL NEC (03/20/15) PSYCHIAT DRUG THERAP NEC (08/18/14) Family History: States: No Known Family Hx - Social History Hx Tobacco Use: Yes Hx Alcohol Use: Yes Hx Substance Use: Yes - Immunization History Hx Tetanus Toxoid Vaccination: No Hx Influenza Vaccination: No Hx Pneumococcal Vaccination: No Review Of Systems Constitutional: Negative for: Fever, Chills Cardiovascular: Negative for: Chest Pain, Palpitations Respiratory: Negative for: Cough, Shortness of Breath Gastrointestinal: Negative for: Nausea, Vomiting Physical Exam - Physical Exam Appears: Non-toxic, Other (Morbidly obese) Skin: Warm, Dry Head: Normacephalic Oral Mucosa: Moist Chest: Symmetrical, No Tenderness Cardiovascular: Rhythm Regular Respiratory: No Rales, No Rhonchi, No Wheezing Gastrointestinal/Abdominal: Soft, No Tenderness Neurological/Psych: Oriented x3 Disposition Counseled Patient/Family Regarding: Studies Performed, Diagnosis, Need For Followup - Disposition Referrals: [facility] [Outside] Disposition: HOME/ ROUTINE Disposition Time: 01:37 Condition: FAIR Forms: [facility] (Azerbaijani), General Discharge Instructions - Clinical Impression Clinical Impression: Malingering - Scribe Statement The provider has reviewed the documentation as recorded by the Scribe Ko Cruz All medical record entries made by the Scribe were at my direction and personally dictated by me. I have reviewed the chart and agree that the record accurately reflects my personal performance of the history, physical exam, medical decision making, and the department course for this patient. I have also personally directed, reviewed, and agree with the discharge instructions and disposition.
[2018-02-02 01:46] VITALS: BP 144/94; PULSE 69; RESP 16; TEMP 97.7; O2SAT 97
== END 2018-02-02 01:42 | disposition home or self-care (01) ==
LOC: C.ER 01:22
DX: Z76.5 Malingerer [conscious simulation] (principal); F20.9 Schizophrenia, unspecified; I10 Essential (primary) hypertension; Z72.0 Tobacco use

== ENCOUNTER 2018-03-13 07:01 | Emergency (ER) | payer MEDICAID, OTHER ==
[2018-03-13 07:02] VITALS: BMI 40.6
[2018-03-13 07:07] VITALS: TEMP 98.5
--- NOTE | 2018-03-13 07:28 | C.PDOC ---
History Of Present Illness 33 year old female presents to the ED BIBA complaining of bilateral leg pain and swelling. Patient states she was [place] [facility] but she was not satisfied with the care which prompted her to call EMS and request to be brought to this ED. She denies any nausea, fever, chest pain, SOB, palpitations. She denies injuries/trauma. Time Seen by Provider: 03/13/18 07:08 Chief Complaint (Nursing): Lower Extremity Problem/Injury History Per: Patient, EMS History/Exam Limitations: no limitations Onset/Duration Of Symptoms: Days Current Symptoms Are (Timing): Still Present Past Medical History Reviewed: Historical Data, Nursing Documentation, Vital Signs Vital Signs: Last Vital Signs Temp 98.5 F 03/13/18 07:03 Pulse 69 03/13/18 09:15 Resp 18 03/13/18 09:15 BP 179/88 H 03/13/18 09:15 Pulse Ox 99 03/13/18 09:29 - Medical History PMH: Anxiety, Asthma, Back Problems, Bipolar Disorder, Depression, HTN, Schizophrenia, Sleep Apnea Denies: Diabetes, Hepatitis, HIV, Chronic Kidney Disease, Seizures, Sexually Transmitted Disease Surgical History: Cholecystectomy, Hernia Repair (Umbilical), (x4) - [facility] Procedures GROUP CONSERVATION BIOLOGY PROFESSOR FOR SUBSTANCE ABUSE TREATMENT, PSYCHOEDUCATION (01/11/18) GROUP CONSERVATION BIOLOGY PROFESSOR FOR SUBSTANCE ABUSE, COGNITIVE BEHAVIORAL (01/11/18) GROUP PSYCHOTHERAPY (01/11/18) INDIV PSYCHOTHERAPY FOR SUBSTANCE ABUSE TREATMENT, SUPPORT (01/11/18) INDIV PSYCHOTHERAPY FOR SUBSTANCE ABUSE, COGNITIV BEHAVIORAL (01/11/18) INDIV PSYCHOTHERAPY FOR SUBSTANCE ABUSE, PSYCHOEDUCATION (01/11/18) INDIVID PSYCHOTHERAP NEC (07/19/14) INDIVIDUAL PSYCHOTHERAPY, COGNITIVE-BEHAVIORAL (01/11/18) INDIVIDUAL PSYCHOTHERAPY, SUPPORTIVE (01/11/18) INJECT/INFUSE ELECTROLYT (03/24/15) INJECT/INFUSE NEC (03/24/15) MEDICATION MANAGEMENT (08/04/16) NEBULIZER THERAPY (01/28/15) OTHER GROUP THERAPY (07/19/14) PSYCHIA INTERV/EVAL NEC (03/20/15) PSYCHIAT DRUG THERAP NEC (08/18/14) Family History: States: No Known Family Hx - Social History Hx Tobacco Use: Yes Hx Alcohol Use: Yes Hx Substance Use: Yes - Immunization History Hx Tetanus Toxoid Vaccination: No Hx Influenza Vaccination: No Hx Pneumococcal Vaccination: No Review Of Systems Except As Marked, All Systems Reviewed And Found Negative. Musculoskeletal: Positive for: Leg Pain (Bilateral leg pain and swelling ) Physical Exam - Physical Exam Appears: Non-toxic, No Acute Distress Skin: Normal Color, Warm, Dry, No Rash Head: Atraumatic, Normacephalic Eye(s): bilateral: Normal Inspection Nose: Normal Oral Mucosa: Moist Chest: Symmetrical Cardiovascular: Rhythm Regular, No Murmur Respiratory: Normal Breath Sounds, No Rales, No Rhonchi, No Wheezing Gastrointestinal/Abdominal: Soft, No Tenderness, Guarding Extremity: Pedal Edema (bilateral peripheral edema), No Calf Tenderness, No Deformity (gross deformity ), No Other (Sciatic process, rash ) Neurological/Psych: Oriented x3, Normal Speech, Normal Motor, Normal Sensation Additional Physical Exam Comments: +1 normal distal pulses at dorsalis pedis/posterior tibial ED Course And Treatment - Laboratory Results Result Diagrams: 03/13/18 07:42 03/13/18 07:42 ECG: Interpreted By Me, Viewed By Me ECG Rhythm: Sinus Rhythm ECG Interpretation: No Acute Changes Interpretation Of ECG: Normal Intervals. Normals axis. Nonspecific T waves changes Rate From EC O2 Sat by Pulse Oximetry: 99 (RA) Pulse Ox Interpretation: Normal - Other Rad CXR X-Ray: Viewed By Me, Read By Radiologist Interpretation: Accession No. : [id number]. Patient Name / ID : GIDEON PHAM / [id number]. Exam Date : 03/13/2018 07:13:27 ( Approved ). Study Comment : Sex / Age : F / 33Y. Creator : Ari Ritchie MD. Dictator : Ari Ritchie MD. Charger Tester : Programming Equipment Operator : Ari Ritchie MD. Approver2 : Report Date : 03/13/2018 09:44:01. My Comment : . Date of service: 03/13/2018. PROCEDURE: CHEST RADIOGRAPH, 1 VIEW. HISTORY: SOB. COMPARISON: Chest radiographs 09/29/2017. FINDINGS: LUNGS: Diminished pulmonary volumes. Developing infiltrate medial right base with remaining lung mcmahon clear. PLEURA: No pneumothorax or pleural fluid seen. CARDIOVASCULAR: Stable cardiomegaly. No pulmonary vascular congestion. OSSEOUS STRUCTURES: No significant abnormalities. VISUALIZED UPPER ABDOMEN: Normal. OTHER FINDINGS: None. IMPRESSION: Medial right basilar airspace disease developing. Remaining lung mcmahon clear. Cardiomegaly stable. Medical Decision Making Medical Decision Making: Assessment: leg pain Plan - EKG - Labs - CXR - Venous Duplex Scan peripheral edema, anemia will discharge home and advise follow up with pmd/medical clinic within 2 days. patient is requesting breathing treatment prior to discharge. Patient does have faint wheeze on reevaluation. Breathing treatment administered and lungs are now clear. Patient discharged as planned and advised to follow up within 2 days. Disposition Counseled Patient/Family Regarding: Studies Performed, Diagnosis, Need For Followup - Disposition Referrals: [facility] [Outside] Disposition: HOME/ ROUTINE Disposition Time: 09:11 Condition: STABLE Additional Instructions: follow up with your doctor or medical clinic within 2 days call to make an appointment take medications as prescribed return to ER if symptoms worsens or progress Prescriptions: Naproxen [Naprosyn] 500 mg PO BID PRN #16 tab PRN Reason: Pain, Moderate (4-7) Instructions: Anemia of Chronic Disease, Swelling Forms: [facility] (Turkish), General Discharge Instructions - Clinical Impression Clinical Impression: Anemia, Edema - Scribe Statement The provider has reviewed the documentation as recorded by the Aleksandra Mejia All medical record entries made by the Aleksandra were at my direction and personally dictated by me. I have reviewed the chart and agree that the record accurately reflects my personal performance of the history, physical exam, medical decision making, and the department course for this patient. I have also personally directed, reviewed, and agree with the discharge instructions and disposition.
[2018-03-13 07:47] LABS: BASO # 0.1 K/uL (0.0-0.2); BASO % 0.6 % (0.0-2.0); EOS # 0.4 K/uL (0.0-0.7); EOS % 4.4 % (0.0-4.0); HEMOGLOBIN 8.5 g/dL (11.0-16.0); LYMPH # 2.3 K/uL (1.0-4.3); LYMPH % 24.6 % (20.0-40.0); MEAN CELL VOLUME 71.4 fL (81.0-99.0); MEAN CORPUSCULAR HGB CONC 30.8 g/dL (33.0-37.0); MEAN PLATELET VOLUME 7.7 fL (7.2-11.7); MONO # 0.4 K/uL (0.0-0.8); MONO % 4.6 % (0.0-10.0); NEUT # 6.1 K/uL (1.8-7.0); NEUT % 65.8 % (50.0-75.0); RBC 3.87 Mil/uL (3.80-5.20); RED CELL DISTRIBUTION WIDTH 20.4 % (11.5-14.5); WHITE BLOOD COUNT 9.2 K/uL (4.8-10.8)
[2018-03-13 08:12] LABS: BARBITURATES, UR NEGATIVE (NEGATIVE); BENZODIAZEPINES, UR NEGATIVE (NEGATIVE); OPIATES, UR NEGATIVE (NEGATIVE); PHENCYCLIDINE, UR NEGATIVE (NEGATIVE)
[2018-03-13 08:14] LABS: B-TYPE NATRIURETIC PEPTIDE 339 pg/mL (0-450)
[2018-03-13 08:25] LABS: ALT/SGPT 23 U/L (9-52)
[2018-03-13 08:26] LABS: ALB/GLOB RATIO 1.2 (1.0-2.1); ALBUMIN 3.7 g/dL (3.5-5.0); AST/SGOT 18 U/L (14-36); BLOOD UREA NITROGEN 9 mg/dL (7-17); CALCIUM 8.3 mg/dl (8.6-10.4); GFR AFRICAN-AMERICAN > 60; GFR NON-AFRICAN AMERICAN > 60
[2018-03-13 09:15] VITALS: BP 179/88; PULSE 69; RESP 18
[2018-03-13] MEDS ORDERED: Albuterol-Ipratrop 3 mg / 0.5 (3 ml) UD INH STA (09:25)
[2018-03-13] MEDS ORDERED: Albuterol-Ipratrop 3 mg / 0.5 (3 ml) UD ONE (09:28)
[2018-03-13 09:29] VITALS: O2SAT 99
--- NOTE | 2018-03-13 09:45 | RAD ---
Date of service: 03/13/2018 PROCEDURE: CHEST RADIOGRAPH, 1 VIEW HISTORY: SOB COMPARISON: Chest radiographs 09/29/2017. FINDINGS: LUNGS: Diminished pulmonary volumes. Developing infiltrate medial right base with remaining lung mcmahon clear. PLEURA: No pneumothorax or pleural fluid seen. CARDIOVASCULAR: Stable cardiomegaly. No pulmonary vascular congestion. OSSEOUS STRUCTURES: No significant abnormalities. VISUALIZED UPPER ABDOMEN: Normal. OTHER FINDINGS: None. IMPRESSION: Medial right basilar airspace disease developing. Remaining lung mcmahon clear. Cardiomegaly stable.
--- NOTE | 2018-03-15 12:10 | CARD ---
APPROVED REPORT Date of service: 03/13/2018 EKG Measurement Heart [id number] <Conclusion> Normal sinus rhythm T wave abnormality, consider lateral ischemia Abnormal ECG
--- NOTE | 2018-03-15 13:05 | VASCLAB ---
Date of service: 03/13/2018 PROCEDURE: Lower Extremity Venous Duplex Exam. HISTORY: leg swelling PRIORS: None. TECHNIQUE: Bilateral common femoral, femoral, popliteal and posterior tibial, peroneal and great saphenous veins were evaluated. Flow was assessed with color Doppler, compressibility, assessment of phasic flow and augmentation response. Report prepared by DORIS Castillo FINDINGS: RIGHT: 1. Common Femoral Vein: 1.1. Compressibility - Fully compressible: Thrombus - None : Flow - Phasic: Augmentation -Normal: Reflux - None. 2. Femoral Vein: 2.1. Compressibility - Fully compressible: Thrombus - None : Flow - Phasic: Augmentation -Normal: Reflux - None. 3. Popliteal Vein: 3.1. Compressibility - Fully compressible: Thrombus - None : Flow - Phasic: Augmentation -Normal: Reflux - None. 4. Posterior Tibial Vein: 4.1. Compressibility - Fully compressible: Thrombus - None: Flow - Phasic: Augmentation -Normal: Reflux - None. 5. Peroneal Vein: 5.1. Compressibility - Fully compressible: Thrombus - None: Flow - Phasic: Augmentation -Normal: Reflux - None. 6. Great Saphenous Vein: 6.1. Compressibility - Fully compressible: Thrombus - None: Flow - Phasic: Augmentation - Normal: Reflux - None. LEFT: 1. Common Femoral Vein: 1.1. Compressibility - Fully compressible: Thrombus - None: Flow - Phasic: Augmentation -Normal: Reflux - None. 2. Femoral Vein: 2.1. Compressibility - Fully compressible: Thrombus - None: Flow - Phasic: Augmentation -Normal: Reflux - None. 3. Popliteal Vein: 3.1. Compressibility - Fully compressible: Thrombus - None : Flow - Phasic: Augmentation -Normal: Reflux - None. 4. Posterior Tibial Vein: 4.1. Compressibility - Fully compressible: Thrombus - None: Flow - Phasic: Augmentation -Normal: Reflux - None. 5. Peroneal Vein: 5.1. Compressibility - Fully compressible: Thrombus - None: Flow - Phasic: Augmentation -Normal: Reflux - None. 6. Great Saphenous Vein: 6.1. Compressibility - Fully compressible: Thrombus - None: Flow - Phasic: Augmentation - Normal: Reflux - None. OTHER FINDINGS: Right: None significant. Left: None significant. IMPRESSION: Right: No evidence of deep or superficial vein thrombosis of the right lower extremity. Normal valve function noted of the right side. Left: No evidence of deep or superficial vein thrombosis of the left lower extremity. Normal valve function noted of the left side.
== END 2018-03-13 10:10 | disposition home or self-care (01) ==
LOC: C.ER 07:01
DX: R60.9 Edema, unspecified (principal); D64.9 Anemia, unspecified
CPT/HCPCS: 71045; 80053; 80320; 80324; 80345; 80346; 80349; 80353; 80358; 80361; 83880; 83992; 84443; 84484; 85025; 93005; 93970; 94640; 96374; 99285; J1940

== ENCOUNTER 2018-04-25 05:23 | Emergency (ER) | payer MEDICAID ==
[2018-04-25 05:24] VITALS: BMI 40.6
[2018-04-25 05:37] VITALS: TEMP 98; O2SAT 99
--- NOTE | 2018-04-25 06:39 | C.PDOC ---
History Of Present Illness Pt c/o of auditory hallucinations. NO S/H ideations. Pt just released from [facility] [place]. No physical c/o Time Seen by Provider: 04/25/18 06:01 Chief Complaint (Nursing): Psychiatric Evaluation History Per: Patient Suicide/Self Injury Attempted (Context): None Modifying Factor(s): None Past Medical History Vital Signs: Last Vital Signs Temp 98 F 04/25/18 06:43 Pulse 78 04/25/18 06:43 Resp 20 04/25/18 06:43 BP 150/86 04/25/18 06:43 Pulse Ox 99 04/25/18 07:13 - Medical History PMH: Anxiety, Asthma, Back Problems, Bipolar Disorder, Depression, HTN, Schizophrenia, Sleep Apnea Denies: Diabetes, Hepatitis, HIV, Chronic Kidney Disease, Seizures, Sexually Transmitted Disease Surgical History: Cholecystectomy, Hernia Repair (Umbilical), (x4) - [facility] Procedures GROUP VENEER STAPLER FOR SUBSTANCE ABUSE TREATMENT, PSYCHOEDUCATION (01/11/18) GROUP VENEER STAPLER FOR SUBSTANCE ABUSE, COGNITIVE BEHAVIORAL (01/11/18) GROUP PSYCHOTHERAPY (01/11/18) INDIV PSYCHOTHERAPY FOR SUBSTANCE ABUSE TREATMENT, SUPPORT (01/11/18) INDIV PSYCHOTHERAPY FOR SUBSTANCE ABUSE, COGNITIV BEHAVIORAL (01/11/18) INDIV PSYCHOTHERAPY FOR SUBSTANCE ABUSE, PSYCHOEDUCATION (01/11/18) INDIVID PSYCHOTHERAP NEC (07/19/14) INDIVIDUAL PSYCHOTHERAPY, COGNITIVE-BEHAVIORAL (01/11/18) INDIVIDUAL PSYCHOTHERAPY, SUPPORTIVE (01/11/18) INJECT/INFUSE ELECTROLYT (03/24/15) INJECT/INFUSE NEC (03/24/15) MEDICATION MANAGEMENT (08/04/16) NEBULIZER THERAPY (01/28/15) OTHER GROUP THERAPY (07/19/14) PSYCHIA INTERV/EVAL NEC (03/20/15) PSYCHIAT DRUG THERAP NEC (08/18/14) Family History: States: Unknown Family Hx - Social History Hx Tobacco Use: Yes Hx Alcohol Use: Yes Hx Substance Use: Yes - Immunization History Hx Tetanus Toxoid Vaccination: No Hx Influenza Vaccination: No Hx Pneumococcal Vaccination: No Review Of Systems Neurological: Negative for: Weakness, Numbness Psych: Positive for: Psychosis. Negative for: Suicidal ideation Physical Exam - Physical Exam Appears: Other (Morbid obesity) Skin: Normal Color Head: Atraumatic Eye(s): bilateral: Normal Inspection Chest: Symmetrical Cardiovascular: Rhythm Regular Respiratory: Normal Breath Sounds Neurological/Psych: Oriented x3 Gait: Steady ED Course And Treatment O2 Sat by Pulse Oximetry: 99 Pulse Ox Interpretation: Normal Progress Note: Pending crisis eval Disposition Counseled Patient/Family Regarding: Diagnosis, Need For Followup - Disposition Disposition: HOME/ ROUTINE Disposition Time: 06:26 Condition: STABLE Forms: [facility] (Yakut), General Discharge Instructions - Clinical Impression Clinical Impression: Schizophrenia Physician Patient Turnover Patient Signed Over To: Ana Laura Benton Handoff Comments: Pending crisis eval
[2018-04-25 06:45] VITALS: BP 150/86; PULSE 78; RESP 20
[2018-04-25 07:42] LABS: BASO % 0.7 % (0.0-2.0); EOS # 0.3 K/uL (0.0-0.7); EOS % 3.9 % (0.0-4.0); HEMOGLOBIN 8.6 g/dL (11.0-16.0); LYMPH # 3.1 K/uL (1.0-4.3); LYMPH % 42.4 % (20.0-40.0); MEAN CELL VOLUME 70.8 fL (81.0-99.0); MEAN CORPUSCULAR HEMOGLOBIN 21.5 pg (27.0-31.0); MEAN CORPUSCULAR HGB CONC 30.3 g/dL (33.0-37.0); MEAN PLATELET VOLUME 7.9 fL (7.2-11.7); MONO # 0.4 K/uL (0.0-0.8); MONO % 5.7 % (0.0-10.0); NEUT # 3.5 K/uL (1.8-7.0); NEUT % 47.3 % (50.0-75.0); RBC 3.99 Mil/uL (3.80-5.20); RED CELL DISTRIBUTION WIDTH 19.5 % (11.5-14.5); WHITE BLOOD COUNT 7.4 K/uL (4.8-10.8)
[2018-04-25 07:54] LABS: ALB/GLOB RATIO 1.3 (1.0-2.1); ALBUMIN 3.8 g/dL (3.5-5.0); ALT/SGPT 21 U/L (9-52); AST/SGOT 14 U/L (14-36); BLOOD UREA NITROGEN 10 mg/dL (7-17); CALCIUM 8.5 mg/dl (8.6-10.4); GFR NON-AFRICAN AMERICAN > 60
== END 2018-04-25 08:32 | disposition home or self-care (01) ==
LOC: C.ER 05:23
DX: F20.9 Schizophrenia, unspecified (principal)

== ENCOUNTER 2018-06-20 07:38 | Emergency (ER) | payer MEDICAID, OTHER ==
[2018-06-20 07:39] VITALS: BMI 40.6
[2018-06-20 08:07] VITALS: RESP 18; O2SAT 99
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
[2018-06-20 10:49] VITALS: BP 132/78; PULSE 62; TEMP 98
--- NOTE | 2018-06-20 14:25 | RAD ---
PROCEDURE: Left Hip X-ray Radiographs. HISTORY: PAIN COMPARISON: Comparison made with prior radiographs of the pelvis left hip dated 01/15/2015 FINDINGS: BONES: Normal. No fracture. JOINTS: Normal. SOFT TISSUES: Normal. OTHER FINDINGS: None. IMPRESSION: Normal left hip radiographs.
== END 2018-06-20 11:35 | disposition home or self-care (01) ==
LOC: C.ER 07:38
DX: M25.552 Pain in left hip (principal); F25.1 Schizoaffective disorder, depressive type

== ENCOUNTER 2018-06-26 02:43 | Emergency (ER) | payer MEDICAID, OTHER ==
[2018-06-26 02:44] VITALS: BMI 40.6
[2018-06-26 03:04] VITALS: BP 147/74; PULSE 90; RESP 18; TEMP 98.5; O2SAT 99
--- NOTE | 2018-06-26 03:29 | C.PDOC ---
History Of Present Illness 33 year old female is brought to the ED by EMS for psych evaluation. Patient c/o auditory hallucination that are telling hurt herself. Patient has multiple prior visits to the ED for same presentation. Patient denies SI/HI, CP, SOB, weakness, numbness, injury, fall, trauma. Time Seen by Provider: 06/26/18 03:00 Chief Complaint (Nursing): Psychiatric Evaluation History Per: Patient, EMS History/Exam Limitations: no limitations Onset/Duration Of Symptoms: Days Current Symptoms Are (Timing): Still Present Suicide/Self Injury Attempted (Context): None Modifying Factor(s): None Associated Symptoms: denies: Depression, Suicidal Thoughts, Suicidal Plan Additional History Per: Patient, EMS Past Medical History Reviewed: Historical Data, Nursing Documentation, Vital Signs Vital Signs: Last Vital Signs Temp 98.5 F 06/26/18 02:48 Pulse 90 06/26/18 02:48 Resp 18 06/26/18 02:48 BP 147/74 06/26/18 02:48 Pulse Ox 99 06/26/18 02:48 - Medical History PMH: Anxiety, Asthma, Back Problems, Bipolar Disorder ((as per previous triage)), Depression, HTN, Schizophrenia ((as per previous triage)), Sleep Apnea Denies: Diabetes, Hepatitis, HIV, Chronic Kidney Disease, Seizures, Sexually Transmitted Disease Surgical History: Cholecystectomy, Hernia Repair (Umbilical), (x4) - [facility] Procedures GROUP HALF SECTION IRONER FOR SUBSTANCE ABUSE TREATMENT, PSYCHOEDUCATION (01/11/18) GROUP HALF SECTION IRONER FOR SUBSTANCE ABUSE, COGNITIVE BEHAVIORAL (01/11/18) GROUP PSYCHOTHERAPY (01/11/18) INDIV PSYCHOTHERAPY FOR SUBSTANCE ABUSE TREATMENT, SUPPORT (01/11/18) INDIV PSYCHOTHERAPY FOR SUBSTANCE ABUSE, COGNITIV BEHAVIORAL (01/11/18) INDIV PSYCHOTHERAPY FOR SUBSTANCE ABUSE, PSYCHOEDUCATION (01/11/18) INDIVID PSYCHOTHERAP NEC (07/19/14) INDIVIDUAL PSYCHOTHERAPY, COGNITIVE-BEHAVIORAL (01/11/18) INDIVIDUAL PSYCHOTHERAPY, SUPPORTIVE (01/11/18) INJECT/INFUSE ELECTROLYT (03/24/15) INJECT/INFUSE NEC (03/24/15) MEDICATION MANAGEMENT (08/04/16) NEBULIZER THERAPY (01/28/15) OTHER GROUP THERAPY (07/19/14) PSYCHIA INTERV/EVAL NEC (03/20/15) PSYCHIAT DRUG THERAP NEC (08/18/14) Family History: States: Unknown Family Hx - Social History Hx Tobacco Use: Yes Hx Alcohol Use: No Hx Substance Use: No - Immunization History Hx Tetanus Toxoid Vaccination: No Hx Influenza Vaccination: No Hx Pneumococcal Vaccination: No Review Of Systems Constitutional: Negative for: Fever, Chills Cardiovascular: Negative for: Chest Pain Respiratory: Negative for: Cough, Shortness of Breath Gastrointestinal: Negative for: Nausea, Vomiting, Abdominal Pain Skin: Negative for: Rash Psych: Negative for: Depression, Suicidal ideation Physical Exam - Physical Exam Appears: Non-toxic, No Acute Distress, Other (Morbidly obese) Skin: Normal Color, Warm, Dry Head: Atraumatic, Normacephalic Eye(s): bilateral: Normal Inspection Neck: Normal ROM, Supple Chest: Symmetrical Cardiovascular: Rhythm Regular Respiratory: Normal Breath Sounds, No Rales, No Rhonchi, No Wheezing Extremity: Normal ROM, No Tenderness, No Swelling Neurological/Psych: Oriented x3, Normal Speech, Normal Cognition Gait: Steady ED Course And Treatment O2 Sat by Pulse Oximetry: 99 (On RA) Pulse Ox Interpretation: Normal Progress Note: Patient was seen by livestock farmworker Dm who discussed case with electronic commerce specialist psychiatrist and patient is clear for D/C. Patient did not voice any SI thoughts. Patient was given information for outpatient resources and follow up. Disposition Counseled Patient/Family Regarding: Diagnosis, Need For Followup, Rx Given - Disposition Disposition: HOME/ ROUTINE Disposition Time: 03:27 Condition: STABLE Additional Instructions: Please follow up with [facility] psychiatric services Return to ER if worse Instructions: Schizophrenia (DC) Forms: [employer] (Yakut) - Clinical Impression Clinical Impression: Hallucinations - PA / COUNTER PERSON / Resident Statement MD/DO has reviewed & agrees with the documentation as recorded. - Scribe Statement The provider has reviewed the documentation as recorded by the Scribe Saeed Martinez All medical record entries made by the Scribe were at my direction and personally dictated by me. I have reviewed the chart and agree that the record accurately reflects my personal performance of the history, physical exam, medical decision making, and the department course for this patient. I have also personally directed, reviewed, and agree with the discharge instructions and disposition.
== END 2018-06-26 04:10 | disposition home or self-care (01) ==
LOC: C.ER 02:43
DX: R44.3 Hallucinations, unspecified (principal)

== ENCOUNTER 2018-07-09 07:41 | Emergency (ER) | payer MEDICAID ==
[2018-07-09 07:41] VITALS: BMI 40.6
--- NOTE | 2018-07-09 07:45 | C.PDOC ---
History Of Present Illness 33 y/o female DULCE after she was discharged from [facility] this morning. Patient states she is just looking for place to the stay. Also complains of chronic leg pain. When approached, patient is nonverbal, with bizarre affect, in no acute distress. Time Seen by Provider: 07/09/18 07:43 Chief Complaint (Nursing): Lower Extremity Problem/Injury History Per: Patient History/Exam Limitations: no limitations Onset/Duration Of Symptoms: Days Current Symptoms Are (Timing): Still Present Reports Recently: Seen In ED Past Medical History Reviewed: Historical Data, Nursing Documentation, Vital Signs - Medical History PMH: Anxiety, Asthma, Back Problems, Bipolar Disorder ((as per previous triage)), Depression, HTN, Schizophrenia ((as per previous triage)), Sleep Apnea Denies: Diabetes, Hepatitis, HIV, Chronic Kidney Disease, Seizures, Sexually Transmitted Disease Surgical History: Cholecystectomy, Hernia Repair (Umbilical), (x4) - [facility] Procedures GROUP TWISTER IN FOR SUBSTANCE ABUSE TREATMENT, PSYCHOEDUCATION (01/11/18) GROUP TWISTER IN FOR SUBSTANCE ABUSE, COGNITIVE BEHAVIORAL (01/11/18) GROUP PSYCHOTHERAPY (01/11/18) INDIV PSYCHOTHERAPY FOR SUBSTANCE ABUSE TREATMENT, SUPPORT (01/11/18) INDIV PSYCHOTHERAPY FOR SUBSTANCE ABUSE, COGNITIV BEHAVIORAL (01/11/18) INDIV PSYCHOTHERAPY FOR SUBSTANCE ABUSE, PSYCHOEDUCATION (01/11/18) INDIVID PSYCHOTHERAP NEC (07/19/14) INDIVIDUAL PSYCHOTHERAPY, COGNITIVE-BEHAVIORAL (01/11/18) INDIVIDUAL PSYCHOTHERAPY, SUPPORTIVE (01/11/18) INJECT/INFUSE ELECTROLYT (03/24/15) INJECT/INFUSE NEC (03/24/15) MEDICATION MANAGEMENT (08/04/16) NEBULIZER THERAPY (01/28/15) OTHER GROUP THERAPY (07/19/14) PSYCHIA INTERV/EVAL NEC (03/20/15) PSYCHIAT DRUG THERAP NEC (08/18/14) Family History: States: Unknown Family Hx - Social History Hx Tobacco Use: Yes Hx Alcohol Use: No Hx Substance Use: No - Immunization History Hx Tetanus Toxoid Vaccination: No Hx Influenza Vaccination: No Hx Pneumococcal Vaccination: No Review Of Systems Except As Marked, All Systems Reviewed And Found Negative. Constitutional: Negative for: Fever Respiratory: Negative for: Shortness of Breath Gastrointestinal: Negative for: Vomiting Musculoskeletal: Positive for: Leg Pain Neurological: Negative for: Weakness, Numbness, Incoordination Physical Exam - Physical Exam Appears: Non-toxic, No Acute Distress Skin: Warm, Dry, No Rash, No Ecchymosis Head: Normacephalic Eye(s): bilateral: Normal Inspection, PERRL, EOMI Oral Mucosa: Moist Neck: Normal ROM Chest: Symmetrical Respiratory: No Accessory Muscle Use, Other (no respiratory distress) Extremity: Bilateral: Atraumatic, Normal ROM Neurological/Psych: Oriented x3 Gait: Steady Medical Decision Making Medical Decision Making: psych, malingering, just kicked out of [facility] no acute issues escorted from ED by Security Disposition Doctor Will See Patient In The: Office Counseled Patient/Family Regarding: Studies Performed, Diagnosis - Disposition Referrals: Alcoholics Anonymous [Outside] [facility] [Outside] [facility] [Outside] [facility] [Outside] [facility] [Outside] [facility] [Outside] Disposition: HOME/ ROUTINE Disposition Time: 07:44 Condition: GOOD Additional Instructions: seek nightly half-way placement seek daily half-way dwelling seek outpatient psych resources. Instructions: Chronic Pain Forms: [facility] (Tajik) - Clinical Impression Clinical Impression: Chronic pain - Scribe Statement The provider has reviewed the documentation as recorded by the Aleksandra Toure Provider Attestation: All medical record entries made by the Vargasibe were at my direction and personally dictated by me. I have reviewed the chart and agree that the record accurately reflects my personal performance of the history, physical exam, medical decision making, and the department course for this patient. I have also personally directed, reviewed, and agree with the discharge instructions and disposition.
== END 2018-07-09 07:55 | disposition home or self-care (01) ==
LOC: C.ER 07:41
DX: G89.29 Other chronic pain (principal)